=== PATIENT | female | born 1935 | race Caucasian/White ===

== ENCOUNTER 2016-06-05 10:57 | Observation (INO) ==
--- NOTE | 2016-06-05 11:29 | Emergency Department Note ---
Disposition Clinical Impression: Right sided weakness Fall Qualifiers: Encounter type: initial encounter Qualified Code(s): W19.XXXA - Unspecified fall, initial encounter Disposition: Admitted As Inpatient Condition: Fair General Adult HPI - General Chief complaint: ED Neuro Symptoms/Deficit Stated complaint: Neuro Symptoms Time Seen by Provider: 06/05/16 11:12 Source: patient Limitations: no limitations Nursing Notes Reviewed: Yes Vital Signs Reviewed: Yes - History of Present Illness HPI Narrative: 81-year-old female who reports 3 days of difficulty with ambulation due to right leg weakness, slurred speech, right facial droop. She is also been having chest discomfort for about the same amount of time. This all began at the time for the of a relative. She does have significant history of anxiety and she notes that she has the exact same chest discomfort when she has her anxiety attacks. She has had a history of coronary arterial disease but does not have any stents or CABG. She has had multiple falls but denies hitting her head. She has had a prior stroke which affected her right side that had essentially resolved and now she is having symptoms again. She does take aspirin but does not take any other blood thinners. She is not on Plavix. Pain Scale: 0 Improves with: nothing Worsens with: nothing Associated symptoms: Reports: denies other symptoms Treatments Prior to Arrival: none - Related Data Home Medications Medication Instructions Recorded Confirmed Aspirin [Adult Low Dose Aspirin EC] 81 mg PO DAILY 04/30/15 06/05/16 Atorvastatin [Lipitor] 80 mg PO HS 04/30/15 06/05/16 Cyanocobalamin (Vitamin B-12) 500 mcg SL DAILY 04/30/15 06/05/16 [Vitamin B-12] Docusate Sodium [Dok] 100 mg PO BID PRN #0 04/30/15 06/05/16 Nitroglycerin 0.4 mg PO Q5-10MIN PRN 04/30/15 06/05/16 Sertraline [Zoloft] 200 mg PO DAILY 04/30/15 06/05/16 Cholecalciferol (D-3) [Vitamin D] 2,000 unit PO DAILY 10/26/15 06/05/16 Cyclosporine [Restasis] 1 drop OP BID 10/26/15 06/05/16 Donepezil [Aricept] 10 mg PO HS 10/26/15 06/05/16 Fluticasone Propionate Nasal 100 mcg NS DAILY 10/26/15 06/05/16 [Flonase] Sucralfate [Carafate] 1 gm PO QID 03/23/16 06/05/16 TraZODone 50 mg PO HS 03/23/16 06/05/16 Albuterol Neb [Proventil Neb] 2.5 mg IH TID 06/05/16 06/05/16 Albuterol Sulfate [Albuterol 2 puff IH Q4H PRN 06/05/16 06/05/16 Inhaler] BuPROPion XL (24 HR) [Wellbutrin 150 mg PO DAILY 06/05/16 06/05/16 XL] Dicyclomine [Bentyl] 10 mg PO BID 06/05/16 06/05/16 LORazepam [Ativan] 1 mg PO TID PRN 06/05/16 06/05/16 Loratadine [Claritin] 10 mg PO DAILY 06/05/16 06/05/16 Losartan [Cozaar] 25 mg PO DAILY 06/05/16 06/05/16 Promethazine HCl 12.5 mg PO TID PRN 06/05/16 06/05/16 Tiotropium [Spiriva] 18 mcg IH DAILY 06/05/16 06/05/16 Previous Rx's Medication Instructions Recorded Isosorbide MONOnitrate (24 HR) 60 mg PO DAILY #30 tab.er.24h 05/10/15 [Imdur] OxyCODONE/APAP 5/325 [Percocet 1 tab PO Q6H PRN #50 tablet 11/01/15 5/325 MG] Pantoprazole Sodium 40 mg PO BID 30 Days 11/01/15 Allergies Allergy/AdvReac Type Severity Reaction Status Date / Time No Known Allergies Allergy Verified 06/05/16 11:03 All systems ED: reviewed and negative except as stated. Constitutional: Denies: fever Eyes: Denies: vision change ENT ED: Denies: throat pain Cardiovascular: Reports: chest pain Respiratory: Denies: cough Gastrointestinal: Denies: abdominal pain, nausea, vomiting, diarrhea Genitourinary: Denies: dysuria Musculoskeletal: Denies: back pain Psychiatric: Reports: anxiety Past Medical History - Past Medical History Medical history: Reports: CVA, GERD, GI bleed, hyperlipidemia, hypertension, myocardial infarction Surgical history: Reports: cholecystectomy, orthopedic, other Psychiatric history: Reports: anxiety CAMPGROUND CARETAKER history: Reports: no CAMPGROUND CARETAKER history - Social History Smoking Status: Never smoker Smokeless Tobacco Status: No Alcohol use: Reports: none Drug use: Reports: none Physical Exam - General Limitations: no limitations General appearance: alert, in no apparent distress - Head Head exam: atraumatic - Eye Eye exam: Present: normal appearance, PERRL, EOMI - ENT ENT exam: normal exam - Neck Neck exam: Present: normal inspection. Absent: tenderness - Chest Chest inspection: Present: normal inspection - Respiratory Respiratory exam: Present: normal lung sounds bilaterally. Absent: respiratory distress - Cardiovascular Cardiovascular exam: Present: regular rate, normal rhythm - Abdominal Exam Abdominal exam: Present: soft, Non-Tender - Extremities Exam Extremities exam: Present: normal inspection, full ROM. Absent: pedal edema - Neurological Exam Neurological exam: Present: alert, oriented X3, reflexes normal, other (She does have moderate facial droop on the right. All other cranial nerves are intact. There is no arm or leg paresthesias or objective weakness.) - Psychiatric Psychiatric exam: Present: normal affect, normal mood - Skin Skin exam: Present: warm, dry Course Course Narrative: She seems to have her return of her prior stroke symptoms. She has had multiple falls and due to this I will make sure there is not an infectious cause although this is likely neurologic in origin. She is having some chest discomfort which she insists is due to her anxiety. I will make sure this is not primary cardiac cause with an EKG and a troponin and a chest x-ray. I will also give her some anxiolysis while she is here in the emergency department. She does take that at home and is requesting her home dose. As her last known well and is 3 days ago she is not a TPA candidate. Will do a CT head and labwork. She is protecting her airway and is clinically stable. CT scan of her head does not demonstrate any acute abnormality. Lab work otherwise unremarkable. We are waiting on her urinalysis. We will obtain an MRI to rule out stroke - Reevaluation(s) Reevaluation #1: The patient is now stating that she is unable to ambulate. We will go ahead and admit her to the hospital pending her MRI. Vital Signs Temperature 97.7 F 06/05/16 11:01 Pulse Rate 65 06/05/16 11:01 Respiratory Rate 16 06/05/16 11:01 Blood Pressure 128/78 06/05/16 11:01 O2 Sat by Pulse Oximetry 94 L 06/05/16 11:01 Temperature 97.7 F 06/05/16 11:01 Pulse Rate 60 06/05/16 14:45 Respiratory Rate 18 06/05/16 15:19 Blood Pressure 107/83 06/05/16 15:19 O2 Sat by Pulse Oximetry 94 L 06/05/16 14:45 Oxygen Delivery Oxygen Delivery Room Air Medical Decision Making - Medical Records Medical records reviewed: Yes I reviewed the patient's medical records. - Lab Data Lab results reviewed: Yes I reviewed the patient's lab results. Result diagrams: 06/05/16 12:25 06/05/16 12:25 Lab Results 06/05/16 06/05/16 06/05/16 Range/Units 11:19 12:25 12:25 WBC 5.7 (4.3-11.1) K/mcL RBC 4.03 (3.82-4.97) M/mcL Hgb 11.7 (11.5-15.4) g/dL Hct 36.9 (35.3-44.9) % MCV 91.6 (83.0-100.0) fL MCH 29.0 (28.0-33.3) pg MCHC 31.7 (31.6-35.5) g/dL RDW 12.9 (11.5-14.5) % Plt Count 170 (140-400) K/mcL MPV 10.2 (9.4-12.4) fL Immature Gran % 0.4 (0-4) % Seg Neutrophils % 68.6 % Lymphocytes % 20.3 % Monocytes % 7.5 % Eosinophils % 2.8 % Basophils % 0.4 % Neutrophils # 3.9 (1.6-8.9) K/mcL Lymphocytes # 1.2 (0.6-4.6) K/mcL Monocytes # 0.4 (0.0-1.3) K/mcL Eosinophils # 0.2 (0.0-0.6) K/mcL Basophils # 0.0 (0.0-0.2) K/mcL PT 11.8 (9.4-12.1) Seconds INR 1.1 APTT 25.3 L (26.0-36.0) Seconds Sodium (136-145) mEq/L Potassium (3.5-4.5) mEq/L Chloride (98-109) mEq/L Carbon Dioxide (19-29) mEq/L BUN (7-20) mg/dL Creatinine (0.57-1.11) mg/dL Est GFR ( Amer) (> 60) Est GFR (Non-Af Amer) (> 60) BUN/Creatinine Ratio (6-26) Glucose (70-99) mg/dL POC Glucose 88 (58-89) Calculated Osmolality (280-300) Calcium (8.6-10.8) mg/dL Troponin I (0-0.03) ng/mL Urine Color (Yellow) Urine Clarity (Clear) Urine pH (5.0-8.0) pH Units Ur Specific [place] (1.010-1.025) Urine Protein (Neg-Trace) mg/dL Urine Glucose (UA) (Normal) mg/dL Urine Ketones (Negative) mg/dL Urine Blood (Negative) Urine Nitrite (Negative) Urine Bilirubin (Negative) Urine Urobilinogen (Normal) mg/dL Ur Leukocyte Esterase (Negative) Urine Microscopic RBC (0-3) per hpf Urine Microscopic WBC (0-3) per hpf Ur Squamous Epith Cells (None-Few) per lpf Urine Bacteria (None-Few) per hpf Hyaline Casts (None-Few) per lpf Ur Culture Indicated? (NO) 06/05/16 06/05/16 06/05/16 Range/Units 12:25 12:25 14:33 WBC (4.3-11.1) K/mcL RBC (3.82-4.97) M/mcL Hgb (11.5-15.4) g/dL Hct (35.3-44.9) % MCV (83.0-100.0) fL MCH (28.0-33.3) pg MCHC (31.6-35.5) g/dL RDW (11.5-14.5) % Plt Count (140-400) K/mcL MPV (9.4-12.4) fL Immature Gran % (0-4) % Seg Neutrophils % % Lymphocytes % % Monocytes % % Eosinophils % % Basophils % % Neutrophils # (1.6-8.9) K/mcL Lymphocytes # (0.6-4.6) K/mcL Monocytes # (0.0-1.3) K/mcL Eosinophils # (0.0-0.6) K/mcL Basophils # (0.0-0.2) K/mcL PT (9.4-12.1) Seconds INR APTT (26.0-36.0) Seconds Sodium 144 (136-145) mEq/L Potassium 4.4 (3.5-4.5) mEq/L Chloride 106 (98-109) mEq/L Carbon Dioxide 29 (19-29) mEq/L BUN 20 (7-20) mg/dL Creatinine 0.99 (0.57-1.11) mg/dL Est GFR ( Amer) > 60 (> 60) Est GFR (Non-Af Amer) 54 L (> 60) BUN/Creatinine Ratio 20 (6-26) Glucose 97 (70-99) mg/dL POC Glucose (58-89) Calculated Osmolality 301 H (280-300) Calcium 10.3 (8.6-10.8) mg/dL Troponin I 0.01 (0-0.03) ng/mL Urine Color Yellow (Yellow) Urine Clarity Cloudy A (Clear) Urine pH 7.5 (5.0-8.0) pH Units Ur Specific [place] 1.022 (1.010-1.025) Urine Protein Negative (Neg-Trace) mg/dL Urine Glucose (UA) Normal (Normal) mg/dL Urine Ketones Negative (Negative) mg/dL Urine Blood Negative (Negative) Urine Nitrite Negative (Negative) Urine Bilirubin Negative (Negative) Urine Urobilinogen Normal (Normal) mg/dL Ur Leukocyte Esterase Negative (Negative) Urine Microscopic RBC 0-3 (0-3) per hpf Urine Microscopic WBC 0-3 (0-3) per hpf Ur Squamous Epith Cells Many H (None-Few) per lpf Urine Bacteria None Seen (None-Few) per hpf Hyaline Casts None Seen (None-Few) per lpf Ur Culture Indicated? NO (NO) - Radiology Data Radiology results reviewed: Yes I reviewed the patient's radiology results. - EKG Data EKG #1 EKG attestation: Yes I reviewed and interpreted this EKG. EKG shows normal: sinus rhythm Rate: bradycardia Rhythm: NSR (56) When compared to previous EKG there are: no significant changes Interpretation: no acute changes Attestation Statement - Attestation Attestation: I examined this patient and my medical decision-making was reviewed with the Resident Physician. I agree with the documented findings, disposition and treatment plan as described except to the extent set forth below. Son states dysarthria and facial droop are worse than baseline, although mild on my assessment. 3 falls in last week. Unable to stand and walk in ED. Doubt stroke, but requires PT/OT eval, will likely require rehab.
[2016-06-05] MEDS ORDERED: *HR* LORazepam 0.5 MG TABLET PO ONE (11:32)
[2016-06-05 12:32] LABS: Basophils % 0.4 %; Eosinophils # 0.2 K/mcL (0.0-0.6); Eosinophils % 2.8 %; Hematocrit 36.9 % (35.3-44.9); Hemoglobin 11.7 g/dL (11.5-15.4); Immature Granulocytes % 0.4 % (0-4); Lymphocytes # 1.2 K/mcL (0.6-4.6); Lymphocytes % 20.3 %; Mean Corpuscular HGB Conc 31.7 g/dL (31.6-35.5); Mean Corpuscular Volume 91.6 fL (83.0-100.0); Mean Platelet Volume 10.2 fL (9.4-12.4); Monocytes # 0.4 K/mcL (0.0-1.3); Monocytes % 7.5 %; Neutrophils # 3.9 K/mcL (1.6-8.9); Platelet Count 170 K/mcL (140-400); Red Blood Count 4.03 M/mcL (3.82-4.97); Red Cell Distribution Width 12.9 % (11.5-14.5); Segmented Neutrophils % 68.6 %
[2016-06-05 12:38] LABS: INR 1.1; Prothrombin Time 11.8 Seconds (9.4-12.1)
[2016-06-05 12:41] LABS: Activated Partial Thrombo Time 25.3 Seconds (26.0-36.0)
[2016-06-05 12:42] LABS: BUN/Creatinine Ratio 20 (6-26); Blood Urea Nitrogen 20 mg/dL (7-20); Calcium 10.3 mg/dL (8.6-10.8); Carbon Dioxide 29 mEq/L (19-29); Chloride 106 mEq/L (98-109); Glucose 97 mg/dL (70-99); Osmolality,Calculated 301 (280-300); Potassium 4.4 mEq/L (3.5-4.5); Sodium 144 mEq/L (136-145); eGFR For African Americans > 60 (> 60); eGFR For Non-African Americans 54 (> 60)
[2016-06-05 14:46] LABS: Bilirubin,Urine Negative (Negative); Blood,Urine Negative (Negative); Clarity,Urine Cloudy (Clear); Color,Urine Yellow (Yellow); Glucose,Urine (UA) Normal (Normal); Ketones,Urine Negative (Negative); Leukocyte Esterase,Urine Negative (Negative); Nitrite,Urine Negative (Negative); PH,Urine 7.5 pH Units (5.0-8.0); Protein,Urine Negative (Neg-Trace); Specific Gravity,Urine 1.022 (1.010-1.025); Urobilinogen,Urine Normal (Normal)
[2016-06-05 14:51] LABS: Bacteria,Urine None Seen per hpf (None-Few); Hyaline Casts,Urine None Seen per lpf (None-Few); RBC,Urine 0-3 per hpf (0-3); Squamous Epithelial Cell,Urine Many per lpf (None-Few); WBC,Urine 0-3 per hpf (0-3)
[2016-06-05] MEDS ORDERED: Naloxone 0.4 MG/ML INJ IVP PRN (17:38)
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
[2016-06-05] MEDS ORDERED: traZODone 50 MG TABLET PO SCH (21:00)
[2016-06-05] MEDS: Albuterol 2.5 MG/3 ML NEBULIZER IH SCH (21:41)
[2016-06-05] MEDS: Sucralfate 1 GM TABLET PO SCH (22:06)
[2016-06-05] MEDS: *HR* LORazepam 0.5 MG TABLET PO PRN (22:07)
[2016-06-05] MEDS: RESTASIS OPTH OP SCH (22:08)
[2016-06-05] MEDS ORDERED: *HR* OxyCODONE/APAP 5/325 TABLET PO PRN (22:23)
[2016-06-06 05:55] LABS: Basophils % 0.4 %; Eosinophils # 0.2 K/mcL (0.0-0.6); Eosinophils % 4.3 %; Hemoglobin 11.4 g/dL (11.5-15.4); Immature Granulocytes % 0.4 % (0-4); Lymphocytes # 1.4 K/mcL (0.6-4.6); Lymphocytes % 24.9 %; Mean Corpuscular HGB Conc 32.6 g/dL (31.6-35.5); Mean Corpuscular Hemoglobin 29.5 pg (28.0-33.3); Mean Corpuscular Volume 90.7 fL (83.0-100.0); Mean Platelet Volume 10.5 fL (9.4-12.4); Monocytes # 0.5 K/mcL (0.0-1.3); Monocytes % 8.9 %; Neutrophils # 3.4 K/mcL (1.6-8.9); Platelet Count 158 K/mcL (140-400); Red Blood Count 3.86 M/mcL (3.82-4.97); Red Cell Distribution Width 12.8 % (11.5-14.5); Segmented Neutrophils % 61.1 %
[2016-06-06 06:13] LABS: BUN/Creatinine Ratio 23 (6-26); Blood Urea Nitrogen 21 mg/dL (7-20); Calcium 9.6 mg/dL (8.6-10.8); Carbon Dioxide 27 mEq/L (19-29); Chloride 106 mEq/L (98-109); Glucose 81 mg/dL (70-99); Osmolality,Calculated 294 (280-300); Sodium 141 mEq/L (136-145); eGFR For African Americans > 60 (> 60); eGFR For Non-African Americans 58 (> 60)
--- NOTE | 2016-06-06 06:56 | Electrocardiograph Report ---
[facility] Test Date: 2016-06-05 Pat Name: Kimberly Thomas Department: 105 Room: 2NE27 Gender: F Executive Director: : 1935 Requested By: Glen Peralta Order Number: [id number] Reading MD: Phill Gomez DO Measurements Intervals [place] Rate: 56 P: 61 TN: 175 QRS: -25 QRSD: 78 T: 63 QT: 427 QTc: 418 Interpretive Statements SINUS BRADYCARDIA BORDERLINE LEFT AXIS DEVIATION [QRS AXIS < -20] Electronically Signed On 06-06-2016 6:54:35 EST by Phill Gomez DO
[2016-06-06] MEDS: Tiotropium 18 MCG inhalation IH SCH (08:21)
[2016-06-06] MEDS: Albuterol 2.5 MG/3 ML NEBULIZER IH SCH ×3 (08:21→21:17)
--- NOTE | 2016-06-06 08:42 | Internal Med Progress Note ---
<Saurav Lainez - Last Filed: 06/06/16 13:48> Date of Encounter: 06/06/16 - Constitutional Vitals: Temp Pulse Resp BP Pulse Ox 98.5 F 69 70 103/63 96 06/06/16 12:51 06/06/16 12:51 06/06/16 12:51 06/06/16 12:51 06/06/16 12:51 Internal Medicine: Result - Labs CBC & Chem 7: 06/06/16 05:33 06/06/16 05:33 Labs: Short CBC 06/06/16 Range/Units 05:33 WBC 5.6 (4.3-11.1) K/mcL Hgb 11.4 L (11.5-15.4) g/dL Hct 35.0 L (35.3-44.9) % Plt Count 158 (140-400) K/mcL Neutrophils # 3.4 (1.6-8.9) K/mcL BMP 06/06/16 05:33 Sodium 141 Potassium 4.0 Chloride 106 Carbon Dioxide 27 BUN 21 H Creatinine 0.93 Glucose 81 Calcium 9.6 - ABG Interpretation ABG results: PT/INR, D-dimer PT 11.8 Seconds (9.4-12.1) 06/05/16 12:25 Consult Discharge Plan - Plan Referrals: Tori Cordoba, CRYPTOLOGIC LINGUIST [Primary Care Provider] - - Attending Attestation I examined this patient and my medical decision-making was reviewed with the NURSE MIDWIFE/CLINICAL INSTRUCTOR/PA/Advanced Practice Nurse/Resident Physician. I agree with the documented findings, disposition and treatment plan as described except to the extent set forth below. <Vasile Sanders - Last Filed: 06/06/16 17:19> Date of Encounter: 06/06/16 Time of Encounter: 09:00 - Assessment and plan (1) Right sided weakness Current Visit: Yes Status: Acute Assessment and plan: -CT and MRI negative for acute abnormality. Does have significant atrophy and old lacunar infarcts. CXR shows COPD, EKG shows HR 56. Previous vitals 50's/70s. -MRA head in 2016 negative -Patient appears to be close to baseline for strength. -Patient extremely stressed lately. Became tearful during the exam. -Per family in the room, patient gets improper medication dosing by her boyfriend. States that "she got 4 losartan pills when she should have gotten one " -Suspect medication vs conversion disorder for recent R sided weakness. Plan -ECHO ordered to evaluate valvular function. (2) HTN (hypertension) Current Visit: No Status: Chronic Assessment and plan: -patient asymptomatic and below 160 systolic. -Patient has COPD.Consider adding norvasc. if persistent HTN Qualifiers: Hypertension type: essential hypertension Qualified Code(s): I10 - Essential (primary) hypertension (3) ALFONSO (generalized anxiety disorder) Current Visit: Yes Status: Acute (4) DVT prophylaxis Current Visit: Yes Status: Acute Assessment and plan: -on lovenox - Time Spent With Patient 25 - 35 minutes - Subjective Interval history: Patient is resting comfortably in bed. She has family members at bedside. Complains of R sided weakness. Feels it is unchanged since yesterday. Denies headache, blurry vision, CP. Admits to being stressed lately. R sided weakness happened suddenly while walking. Made her fall to the ground. She did not loose consciousness. Denies any recent fever, sick contacts or trauma, palpitations, CP, SOB. PHM of anxiety and panic attacks. - Constitutional Vitals: Temp Pulse Resp BP Pulse Ox 98.8 F 63 16 145/74 97 06/06/16 08:06 06/06/16 08:06 06/06/16 08:23 06/06/16 08:06 06/06/16 08:23 General appearance: Present: cooperative, A&O X 3, answers questions appropriately - Head Head exam: Present: atraumatic, normocephalic - Eye Eye exam: Present: PERRL, conjuntiva pink, sclera anicteric Pupils: Present: PERRL - Respiratory Respiratory exam: Present: CTAB. Absent: accessory muscle use, rales, rhonchi, wheezes - Cardiovascular Cardiovascular exam: Present: RRR, +S1, +S2. Absent: diastolic murmur, gallop, rubs, systolic murmur - GI/Abdominal GI/Abdominal exam: Present: normal bowel sounds, soft, no peritoneal signs. Absent: distended, tenderness - Neurological Exam Neurological exam: Present: oriented X3, facial droop (chronic from previous stroke. ). Absent: pronater drift - Expanded Neurological Exam Neurological exam expanded: Present: memory loss-recent event, protecting the airway. Absent: total aphasia Patient oriented to: Present: person, place, time Speech: Present: fluid speech Cranial Nerves: EOM's intact PM: Normal, tongue deviation PM: Normal Cerebellar function: finger to nose: Normal Upper motor neuron: Babinski sign: Normal Sensory exam: LE 2 point discrimination: Normal Neuro motor strength exam: LUE: 5, RUE: 5, LLE: 5, RLE: 4 - Psychiatric Psychiatric exam: Present: normal affect, normal mood Internal Medicine: Result - Labs CBC & Chem 7: 06/06/16 05:33 06/06/16 05:33 Labs: Short CBC 06/06/16 Range/Units 05:33 WBC 5.6 (4.3-11.1) K/mcL Hgb 11.4 L (11.5-15.4) g/dL Hct 35.0 L (35.3-44.9) % Plt Count 158 (140-400) K/mcL Neutrophils # 3.4 (1.6-8.9) K/mcL BMP 06/06/16 05:33 Sodium 141 Potassium 4.0 Chloride 106 Carbon Dioxide 27 BUN 21 H Creatinine 0.93 Glucose 81 Calcium 9.6 - ABG Interpretation ABG results: PT/INR, D-dimer PT 11.8 Seconds (9.4-12.1) 06/05/16 12:25
[2016-06-06] MEDS: Loratadine 10 MG TABLET PO SCH (09:27)
[2016-06-06] MEDS: BuPROPion XL (24 HR) 150 MG TABLET PO SCH (09:27)
[2016-06-06] MEDS: Cyanocobalamin (B-12) 1,000 MCG TABLET PO SCH (09:27)
[2016-06-06] MEDS: Cholecalciferol (D-3) 1,000 UNIT TABLET PO SCH (09:28)
[2016-06-06] MEDS: Sucralfate 1 GM TABLET PO SCH ×4 (09:28→21:07)
[2016-06-06] MEDS: Isosorbide MONOnitrate (24 HR) 60 MG TAB.ER.24H PO SCH (09:30)
[2016-06-06] MEDS: RESTASIS OPTH OP SCH ×2 (09:30→21:07)
[2016-06-06] MEDS: Aspirin Enteric Coated 81 MG Tablet PO SCH (09:30)
[2016-06-06] MEDS: *HR* LORazepam 0.5 MG TABLET PO PRN ×3 (09:36→21:07)
[2016-06-06] MEDS: *HR* Enoxaparin 30 MG/0.3 ML SYRINGE SQ SCH (16:11)
[2016-06-06] MEDS: Fluticasone Propionate Nasal 50 MCG/SPRAY BOTTLE NS SCH (17:01)
[2016-06-06] MEDS ORDERED: traZODone 50 MG TABLET PO PRN (20:07)
[2016-06-07] MEDS: *HR* Enoxaparin 30 MG/0.3 ML SYRINGE SQ SCH (06:14)
[2016-06-07 06:20] LABS: BUN/Creatinine Ratio 29 (6-26); Blood Urea Nitrogen 24 mg/dL (7-20); Carbon Dioxide 26 mEq/L (19-29); Chloride 107 mEq/L (98-109); Glucose 98 mg/dL (70-99); Magnesium 1.9 mg/dL (1.6-2.6); Osmolality,Calculated 300 (280-300); Phosphorous 4.2 mg/dL (2.3-4.7); Potassium 4.1 mEq/L (3.5-4.5); Sodium 143 mEq/L (136-145); eGFR For African Americans > 60 (> 60); eGFR For Non-African Americans > 60 (> 60)
[2016-06-07] MEDS ORDERED: *HR* Enoxaparin 30 MG/0.3 ML SYRINGE SQ SCH (07:00)
[2016-06-07] MEDS: Tiotropium 18 MCG inhalation IH SCH (07:39)
[2016-06-07] MEDS: Albuterol 2.5 MG/3 ML NEBULIZER IH SCH (07:39)
--- NOTE | 2016-06-07 09:34 | Discharge Summary ---
<TommyVasile Glen - Last Filed: 06/07/16 12:50> Date of Encounter: 06/07/16 Time of Encounter: 08:00 - Discharge Diagnosis (1) Right sided weakness Status: Acute Comments: -See hospital discharge. (2) HTN (hypertension) Status: Resolved Qualifiers: Hypertension type: essential hypertension Qualified Code(s): I10 - Essential (primary) hypertension (3) ALFONSO (generalized anxiety disorder) Status: Acute (4) DVT prophylaxis Status: Acute - Discharge Medications Home Medications: Aspirin [Adult Low Dose Aspirin EC] 81 mg PO DAILY 04/30/15 [History] Atorvastatin [Lipitor] 80 mg PO HS 04/30/15 [History] Cyanocobalamin (Vitamin B-12) [Vitamin B-12] 500 mcg SL DAILY 04/30/15 [History] Docusate Sodium [Dok] 100 mg PO BID PRN #0 04/30/15 [History] Nitroglycerin 0.4 mg PO Q5-10MIN PRN 04/30/15 [History] Sertraline [Zoloft] 200 mg PO DAILY 04/30/15 [History] Isosorbide MONOnitrate (24 HR) [Imdur] 60 mg PO DAILY #30 tab.er.24h 05/10/15 [ Rx] Cholecalciferol (D-3) [Vitamin D] 2,000 unit PO DAILY 10/26/15 [History] Cyclosporine [Restasis] 1 drop OP BID 10/26/15 [History] Donepezil [Aricept] 10 mg PO HS 10/26/15 [History] Fluticasone Propionate Nasal [Flonase] 100 mcg NS DAILY 10/26/15 [History] OxyCODONE/APAP 5/325 [Percocet 5/325 MG] 1 tab PO Q6H PRN #50 tablet 11/01/15 [ Rx] Pantoprazole Sodium 40 mg PO BID 30 Days 11/01/15 [Rx] Sucralfate [Carafate] 1 gm PO QID 03/23/16 [History] TraZODone 50 mg PO HS 03/23/16 [History] Albuterol Neb [Proventil Neb] 2.5 mg IH TID 06/05/16 [History] Albuterol Sulfate [Albuterol Inhaler] 2 puff IH Q4H PRN 06/05/16 [History] BuPROPion XL (24 HR) [Wellbutrin XL] 150 mg PO DAILY 06/05/16 [History] Dicyclomine [Bentyl] 10 mg PO BID 06/05/16 [History] LORazepam [Ativan] 1 mg PO TID PRN 06/05/16 [History] Loratadine [Claritin] 10 mg PO DAILY 06/05/16 [History] Losartan [Cozaar] 25 mg PO DAILY 06/05/16 [History] Promethazine HCl 12.5 mg PO TID PRN 06/05/16 [History] Tiotropium [Spiriva] 18 mcg IH DAILY 06/05/16 [History] Allergies/Adverse Reactions: Allergies No Known Allergies Allergy (Verified 06/05/16 11:03) Procedures/tests Complete & Pending: Procedures Performed prior 72 hours Category Date Time Status EV echocardiogram Routine Y 06/06/16 16:59 Completed Date of admission: 06/05/16 15:06 Primary care physician: Tori Cordoba CNP Consults: 06/05/16 17:46 Consult to Occupational Therapy [CONS] Routine Comment: Evaluate, develop and implement POC Consult to Physical Therapy [CONS] Routine Comment: Evaluate, develop and implement POC 06/05/16 17:48 Consult to Reinforced Ironworker [CONS] Routine Reason for SW Consult: discharge planning - concerns about medication adminstration at home-living situation with boyfriend, fall risk 06/05/16 18:08 Consult to Nutrition [CONS] Routine Comment: Consulting Provider: NUTRITION Reason for Dietary Consult: MST Score Discharging clinician: Vasile Sanders - Patient Status Disposition: Home Health Service Condition: Good Functional capacity at discharge: uses cane/walker Overall status at discharge: patient is progressing back to baseline - Discharge Instructions Instructions: Transient Ischemic Attack (DC), Left Hemispheric Stroke (DC), Brain Stem Infarction (DC), Weakness (GEN) Follow Up With: Tori Cordoba CNP [Primary Care Provider] - Gamaliel Chase MD [Partnered Physician] - (Sudden R sided weakness lasting several days. CT/MRI/EKG/CXR/ECHO no acute changes. Patient under a lot of stress. Possible conversion disorder. ) Additional Instructions: Please followup with psychiatry referral. If you have new or worsening symptoms , please go to your nearest ED to be evaluated. - Diet and Activity Activity: as per physical therapy Diet: advance to your usual diet Hospital course: Ms. Thomas is a 81 year old female, PHM anxiety and stroke 3 years ago, who was admitted for R sided weakness that started 3 days pior to admission. Patient stated it was sudden and has residual effects. She has been under a lot of stress lately. Lab work was within normal limits. CT head/MRI head/CXR, EKG, ECHO shows no acute abnormality. MRI does show old lacunar infarcts and moderate brain atrophy. Ventricles appear to be WNL. Discussed findings with patient at bedside. Becasue of negative workup, I feel this is most likely a conversion disorder-considering the sudden onset, stressful situation(s), regaining of function and negative workup for TIA/stroke/cardiac pathology. After speaking with the family, it was noted that she may be getting her mediations inappropriately distributed. Home health services is on board. She does not have a psychiatrist and would like to have an appointment. She does feel comfortable going home and wishes to leave the hospital at this time. - Time Spent with Patient Total time spent providing and/or coordinating discharge services: Greater than 30 minutes - Constitutional Vitals: Temp Pulse Resp BP Pulse Ox 97.9 F 74 16 123/57 96 06/07/16 08:02 06/07/16 08:02 06/07/16 08:02 06/07/16 08:02 06/07/16 08:02 General appearance: Present: cooperative, A&O X 3, answers questions appropriately - Head Head exam: Present: atraumatic, normocephalic - Eye Eye exam: Present: PERRL, conjuntiva pink, sclera anicteric Pupils: Present: PERRL - Neck Neck exam general surgery: Present: supple, trachea midline. Absent: lymphadenopathy - Respiratory Respiratory exam: Present: CTAB. Absent: accessory muscle use, rales, rhonchi, wheezes - Cardiovascular Cardiovascular exam: Present: RRR, +S1, +S2. Absent: diastolic murmur, gallop, rubs, systolic murmur - GI/Abdominal GI/Abdominal exam: Present: normal bowel sounds, soft, no peritoneal signs. Absent: distended, tenderness - Extremities Exam Extremities exam: Present: warm, radial pulses palpable and symetrical. Absent : calf tenderness, cyanotic, pedal edema - Neurological Exam Neurological exam: Present: CN II-XII intact, oriented X3, no focal deficits. Absent: pronater drift, facial droop, speech deficit - Expanded Neurological Exam Speech: Present: fluid speech. Absent: garbled, slurred, stutter Cranial Nerves: EOM's intact PM: Normal Cerebellar function: finger to nose: Normal Upper motor neuron: sensory extinction: Normal - Skin Skin exam: Present: dry, intact - Other Additional findings: Leg strength is equal bilaterally. <Saurav Lainez P - Last Filed: 06/07/16 14:49> Date of Encounter: 06/07/16 Procedures/tests Complete & Pending: Procedures Performed prior 72 hours Category Date Time Status EV echocardiogram Routine Y 06/06/16 16:59 Completed Date of admission: 06/05/16 15:06 Primary care physician: Tori Cordoba CNP Consults: 06/05/16 17:46 Consult to Occupational Therapy [CONS] Routine Comment: Evaluate, develop and implement POC Consult to Physical Therapy [CONS] Routine Comment: Evaluate, develop and implement POC 06/05/16 17:48 Consult to Reinforced Ironworker [CONS] Routine Reason for SW Consult: discharge planning - concerns about medication adminstration at home-living situation with boyfriend, fall risk 06/05/16 18:08 Consult to Nutrition [CONS] Routine Comment: Consulting Provider: NUTRITION Reason for Dietary Consult: MST Score Hospital course: Ms. Thomas is a 81 year old female - Time Spent with Patient Total time spent providing and/or coordinating discharge services: - Constitutional Vitals: Temp Pulse Resp BP Pulse Ox 98.7 F 65 16 118/67 97 06/07/16 12:30 06/07/16 12:30 06/07/16 12:30 06/07/16 12:30 06/07/16 12:30 - Attending Attestation I examined this patient and my medical decision-making was reviewed with the R PROGRAMMER/PA/Advanced Practice Nurse/Resident Physician. I agree with the documented findings, disposition and treatment plan as described except to the extent set forth below. spoke to daughter and she will be in charge of patient's medications.
--- NOTE | 2016-06-07 09:41 | ECHO - Doppler Report ---
Echocardiogram Name: Kimberly Thomas Date of Study: 06/06/2016 Date: 1935 Ht: 62.0 in Medical Record#: [id number] Age: 81 Wt: 103.0 lb Gender: Female BSA: 1.44 Order #: [id number] Location: [facility] Room #: [id number] Reading Physician: Feroz Wu DO, SAVITA, [place] VIVAR Binding Folder Machine: Génesis Wheeler RDCS Ordering Physician: Saurav Lainez MD Primary Physician: Tori Cordoba CNP Indications: Right Side Weakness, Evaluate valves Impressions: LVEF 65%. Normal LV chamber size, wall thickness and function. Mild left ventricular diastolic dysfunction. Normal right ventricular structure and function. Mild aortic regurgitation. No evidence of pulmonary hypertension. Left Ventricular Wall Motion: Rest Echo Findings All wall segments showed normal motion. Findings: Study Quality * Technically adequate exam. ECG Findings * Normal sinus rhythm. Left Ventricle * LVEF 65%. * Normal LV chamber size, wall thickness and function. * Mild left ventricular diastolic dysfunction. Right Ventricle * Normal right ventricular structure and function. Left Atrium * Normal left atrial size. Right Atrium * Normal right atrial size. Interatrial Septum * Interatrial septum not well evaluated. Aortic Valve * Aortic valve not well visualized. * Mildly calcified aortic valve leaflets. * Mild aortic regurgitation. * No aortic stenosis. Mitral Valve * Mild mitral annular calcification * No mitral regurgitation. * No mitral stenosis. Tricuspid Valve * Normal tricuspid valve structure and function. * Trace tricuspid regurgitation. * No evidence of pulmonary hypertension. Pulmonic Valve * Pulmonic valve not well visualized. * No pulmonic regurgitation. Aorta * Normally sized aortic root. Pericardium * The pericardium appears normal. IVC * Normal IVC dimensions and inspiratory collapse. Pulmonary Artery * Normal visualized portions of the main pulmonary artery. History Hypertension Hypercholesteremia Family History of CAD Myocardial Infarction 03/24/2016 a Previous Echo was performed. Measurements: BP: 149/ 66 2D Normal Values RVIDd: 1.96 cm <2.7 cm IVSd: .67 cm 0.6 - 1.0 cm LVIDd: 4.63 cm 3.7 - 5.6 cm LVPWd: .77 cm 0.6 - 1.1 cm LVIDs: 2.46 cm 1.5 - 3.6 cm AO: 2.10 cm < 4.0 cm LA: 2.90 cm 2.0 - 4.0cm %FS: 46.90 cm >25 % LVOT Diam: 1.90 cm LA volume: 24 Mitral Valve Peak E:.97 m/sec Peak A:1.30 m/sec E/A Ratio:0.7 Peak E' Lat Piotr:8.95 cm/s Peak E' Med Piotr:8.21 cm/s E/E' Lat Ratio:10.8 E/E' Med Ratio:11.8 Aortic Valve AI pressure Half-time: 866.00 msec Tricuspid Valve TV Regurg Peak Grad: 12.00mmHg TV Regurg Peak Piotr: 1.75m/sec Updated by Feroz Wu DO, FACDarlene, [place] VIVAR on 06/07/2016 9:36:08 AM electronically signed on 06/07/2016 9:36:51 AM with status of Final Wall Motion Hightower: 1=Normal, 2=Hypokinesis, 3=Akinesis, 4=Dyskinesis, 5=Aneurysmal, 6=Hyperkinetic, X=Not Visualized (Blank)=Missing
[2016-06-07] MEDS: Cyanocobalamin (B-12) 1,000 MCG TABLET PO SCH (10:42)
[2016-06-07] MEDS: Aspirin Enteric Coated 81 MG Tablet PO SCH (10:42)
[2016-06-07] MEDS: Loratadine 10 MG TABLET PO SCH (10:42)
[2016-06-07] MEDS: BuPROPion XL (24 HR) 150 MG TABLET PO SCH (10:42)
[2016-06-07] MEDS: Isosorbide MONOnitrate (24 HR) 60 MG TAB.ER.24H PO SCH (10:42)
[2016-06-07] MEDS: Sucralfate 1 GM TABLET PO SCH (10:42)
[2016-06-07] MEDS: Cholecalciferol (D-3) 1,000 UNIT TABLET PO SCH (10:43)
[2016-06-07] MEDS: Fluticasone Propionate Nasal 50 MCG/SPRAY BOTTLE NS SCH (10:44)
[2016-06-07] MEDS: RESTASIS OPTH OP SCH (10:44)
[2016-06-07 12:32] VITALS: BP 118/67
--- NOTE | 2016-06-07 12:36 | Physician Discharge Referral ---
<Vasile Sanders - Last Filed: 06/07/16 12:33> Home Health/Hosp Referral Info Transfer to: Home Health Attending Provider: Dr. Lainez Provider in Charge Post Discharge: PCP - Diagnosis (1) Right sided weakness Status: Acute (2) HTN (hypertension) Status: Chronic (3) ALFONSO (generalized anxiety disorder) Status: Acute (4) DVT prophylaxis Status: Acute - Respiratory Orders None Smoking Cessation: Smoking cessation has been advised. For more information, call the [place] Tobacco Quit Line at 9-172-DVQW-NOW. - Activity Activity Orders: Ambulate, Walker - Services Needed Following services are medically necessary services: Home Health Aide, Physical Therapy, Occupational Therapy Home Care Orders: Occupational therapy: OT eval done in hospital. C/C: R sided Weakness Assessment OT evaluation completed this date. Due to the impairments listed above pt requires continued skilled OT services during acute hospital care. Upon discharge from hospital pt is safe to return home but requires 24 hour supervision initially for safety and assistance and no additional OT services are needed at this time. Rehab Potential Good Planned OT Interventions Therapeutic Exercise,Therapeutic Activity,Self Care/Home Management OT Treatment Frequency 3x/wk OT Duration of Treatment until discharged from acute hospital care Estimated OT Needs at Home with 24hr Physical Therapy: Pt demonstrates minimal balance and gait impairments. No skilled PT services are required in acute care setting. However, pt would benefit from skilled PT services in outpatient setting upon d/c in order to instruct higher level balance and gait training. PT encouraged pt to continue ambulation with caregivers. PT Treatment Diagnosis Other abnormalities of gait and mobility Estimated PT Needs at Outpatient Therapy Home Health aid -Patient has been receiving her meds wrong. Got 4 lisinopril pills when she should not have. Medications handled by her boyfriend. Has been running short on controlled substances. Please dose the appropriate medication to the patient. Thank you. - Transfer Medications Home Medications: Aspirin [Adult Low Dose Aspirin EC] 81 mg PO DAILY 04/30/15 [History] Atorvastatin [Lipitor] 80 mg PO HS 04/30/15 [History] Cyanocobalamin (Vitamin B-12) [Vitamin B-12] 500 mcg SL DAILY 04/30/15 [History] Docusate Sodium [Dok] 100 mg PO BID PRN #0 04/30/15 [History] Nitroglycerin 0.4 mg PO Q5-10MIN PRN 04/30/15 [History] Sertraline [Zoloft] 200 mg PO DAILY 04/30/15 [History] Isosorbide MONOnitrate (24 HR) [Imdur] 60 mg PO DAILY #30 tab.er.24h 05/10/15 [ Rx] Cholecalciferol (D-3) [Vitamin D] 2,000 unit PO DAILY 10/26/15 [History] Cyclosporine [Restasis] 1 drop OP BID 10/26/15 [History] Donepezil [Aricept] 10 mg PO HS 10/26/15 [History] Fluticasone Propionate Nasal [Flonase] 100 mcg NS DAILY 10/26/15 [History] OxyCODONE/APAP 5/325 [Percocet 5/325 MG] 1 tab PO Q6H PRN #50 tablet 11/01/15 [ Rx] Pantoprazole Sodium 40 mg PO BID 30 Days 11/01/15 [Rx] Sucralfate [Carafate] 1 gm PO QID 03/23/16 [History] TraZODone 50 mg PO HS 03/23/16 [History] Albuterol Neb [Proventil Neb] 2.5 mg IH TID 06/05/16 [History] Albuterol Sulfate [Albuterol Inhaler] 2 puff IH Q4H PRN 06/05/16 [History] BuPROPion XL (24 HR) [Wellbutrin XL] 150 mg PO DAILY 06/05/16 [History] Dicyclomine [Bentyl] 10 mg PO BID 06/05/16 [History] LORazepam [Ativan] 1 mg PO TID PRN 06/05/16 [History] Loratadine [Claritin] 10 mg PO DAILY 06/05/16 [History] Losartan [Cozaar] 25 mg PO DAILY 06/05/16 [History] Promethazine HCl 12.5 mg PO TID PRN 06/05/16 [History] Tiotropium [Spiriva] 18 mcg IH DAILY 06/05/16 [History] Allergies/Adverse Reactions: Allergies No Known Allergies Allergy (Verified 06/05/16 11:03) Certification: Further, I certify that my clinical findings support that this patient is homebound (i.e. absences from home require considerable and taxing effort and are for medical reasons or latter-day services or infrequently or short duration when for other reasons) because: Homebound Reason: Leaving home requires considerable and taxing effort due to condition Attestation: My signature below is to certify that this patient is under my care and that I, or nurse practitioner, or a physician's orthodontic assistant working with me, has a face-to -face encounter with this patient. <Saurav Lainez P - Last Filed: 06/07/16 14:49> - Respiratory Orders Smoking Cessation: Smoking cessation has been advised. For more information, call the [place] Tobacco Quit Line at 2-586-DYJFNOW. Certification: Further, I certify that my clinical findings support that this patient is homebound (i.e. absences from home require considerable and taxing effort and are for medical reasons or latter-day services or infrequently or short duration when for other reasons) because: Attestation: My signature below is to certify that this patient is under my care and that I, or nurse practitioner, or a physician's orthodontic assistant working with me, has a face-to -face encounter with this patient.
[2016-06-08] MEDS ORDERED: *HR* Enoxaparin 40 MG/0.4 ML SYRINGE SQ SCH (07:00)
== END 2016-06-07 14:14 | disposition home health service (06) ==
LOC: EMEROO 10:57 → 2NENU 10:57
PROVIDERS: ADMIT Family Medicine; ATTEND Internal Medicine

== ENCOUNTER 2017-08-17 09:11 | Inpatient (IN) ==
--- NOTE | 2017-08-17 09:23 | Emergency Department Note ---
Disposition Clinical Impression: Generalized weakness, Accelerated hypertension, Chronic migraine, Lactic acidosis Abdominal pain Qualifiers: Abdominal location: unspecified location Qualified Code(s): R10.9 - Unspecified abdominal pain Disposition: Admitted As Inpatient Condition: Good Time of Disposition: 12:12 General Adult HPI - General Chief complaint: ED Headache Stated complaint: headache Time Seen by Provider: 08/17/17 09:15 Source: patient, EMS Mode of arrival: EMS Limitations: no limitations Nursing Notes Reviewed: Yes Vital Signs Reviewed: Yes - History of Present Illness HPI Narrative: 82-year-old female history of hypertension and prior CVA resents emergency department via EMS for generalized weakness, headache, and diarrhea. Patient states over the past 3 days sees had diarrhea with associated abdominal pain. She reports nausea no vomiting. Last night she developed an headache and was found to have elevated blood pressure. She has not been able take her home antihypertensive medication lisinopril she normally does in the morning. Her blood pressures elevated systolic 190. She reports of some chest pain but points to her belly. She denies any shortness of breath. On examination she is in some moderate distress it appears uncomfortable. She complains of some neck pain along with a headache. She has a slight right sided facial droop whispering to the forehead. States she has had a prior stroke but is unsure if her facial asymmetry is new or old. No focal neural deficits on extremities. Abdomen is diffusely tender. At this time EKG chest x-ray CT of the head with abdomen and pelvis. Basic labs including troponin and lactate. Will await the arrival of her to obtain further history. Pain Scale: 8 - Related Data Home Medications Medication Instructions Recorded Confirmed Aspirin [Adult Low Dose Aspirin EC] 81 mg PO DAILY 04/30/15 12/09/16 Atorvastatin [Lipitor] 80 mg PO HS 04/30/15 12/09/16 Cyanocobalamin (Vitamin B-12) 500 mcg SL DAILY 04/30/15 12/09/16 [Vitamin B-12] Docusate Sodium [Dok] 100 mg PO BID PRN #0 04/30/15 12/09/16 Nitroglycerin 0.4 mg PO Q5-10MIN PRN 04/30/15 12/09/16 Sertraline [Zoloft] 100 mg PO BID 04/30/15 06/05/16 Cholecalciferol (D-3) [Vitamin D] 2,000 unit PO DAILY 10/26/15 12/09/16 Cyclosporine [Restasis] 1 drop OP BID 10/26/15 12/09/16 Donepezil [Aricept] 10 mg PO HS 10/26/15 12/09/16 Fluticasone Propionate Nasal 100 mcg NS DAILY 10/26/15 12/09/16 [Flonase] Sucralfate [Carafate] 1 gm PO QID 03/23/16 12/09/16 TraZODone 100 mg PO HS 03/23/16 12/09/16 Albuterol Neb [Proventil Neb] 2.5 mg IH TID 06/05/16 12/09/16 Albuterol Sulfate [Albuterol 2 puff IH Q4H PRN 06/05/16 12/09/16 Inhaler] BuPROPion XL (24 HR) [Wellbutrin 150 mg PO DAILY 06/05/16 12/09/16 Xl] Loratadine [Claritin] 10 mg PO DAILY 06/05/16 12/09/16 Losartan [Cozaar] 25 mg PO DAILY 06/05/16 12/09/16 Previous Rx's Medication Instructions Recorded Isosorbide MONOnitrate (24 HR) 60 mg PO DAILY #30 tab.er.24h 05/10/15 [Imdur] Pantoprazole Sodium 40 mg PO BID 30 Days tablet. 11/01/15 Promethazine [Phenergan] 25 mg PO Q6HR PRN #10 tablet 12/02/16 Sulfamethoxazole/Trimeth DS 1 each PO BID #14 tablet 12/02/16 [Bactrim Ds] Patient Taking Own Medication 1 each VG HS each 12/12/16 Melatonin 3 mg PO HS PRN tab 12/14/16 OxyCODONE/APAP 5/325 [Percocet 1 each PO Q6HR PRN #28 tablet 12/14/16 5/325 MG] Albuterol Sulfate [Albuterol 0 puff IH Q4HR #1 hfa.aer.ad 04/04/17 Inhaler] Ipratropium/Albuterol Neb [Duoneb] 3 ml IH Q4HR #30 vial.neb 04/04/17 Allergies Allergy/AdvReac Type Severity Reaction Status Date / Time No Known Allergies Allergy Verified 06/05/16 11:03 All systems ED: reviewed and negative except as stated. Review of Systems: As Per HPI Constitutional: Reports: weakness. Denies: fever, chills ENT ED: Denies: congestion Cardiovascular: Denies: chest pain Respiratory: Denies: cough, dyspnea Gastrointestinal: Reports: abdominal pain, nausea, diarrhea. Denies: vomiting Genitourinary: Denies: urgency, dysuria Musculoskeletal: Reports: neck pain. Denies: back pain Integumentary: Denies: rash, abrasion Neurological: Reports: headache, weakness Psychiatric: Denies: anxiety, depression Endocrine: Reports: fatigue Past Medical History - Past Medical History Attestation: Yes The following information was validated with the patient. 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 Absent: meningismus - Expanded Neck Exam Neck exam focused ED: Present: paraspinal tenderness (BILATERAL) - Chest Chest inspection: Present: normal inspection, symmetric chest wall rise - Respiratory Respiratory exam: Present: normal lung sounds bilaterally - Cardiovascular Cardiovascular exam: Present: regular rate, normal rhythm, normal heart sounds. Absent: systolic murmur, diastolic murmur - Abdominal Exam Abdominal exam: Present: soft, tenderness, normal bowel sounds. Absent: Non- Tender, distention, guarding, rebound, rigidity Abdominal tenderness: Present: diffuse - Extremities Exam Extremities exam: Present: normal inspection, full ROM, normal capillary refill. Absent: tenderness, pedal edema - Back Exam Back exam: Present: normal inspection, full ROM. Absent: tenderness - Neurological Exam Neurological exam: Present: alert, oriented X3 - Psychiatric Psychiatric exam: Present: normal affect, normal mood - Skin Skin exam: Present: warm, dry, intact, normal color. Absent: rash, cyanosis, diaphoresis Course Course Narrative: Re-examined the patient again states she has a history of migraines. This is throbbing ache to the frontal aspect of her head. She has associated photophobia and nausea. This feels similar to her migraines but she has not had one in a while. Review of her medication list she takes lisinopril 10 mg daily and has not taken it today. Will give her Zofran which she takes at home along with the lisinopril to see if it brings down her blood pressure. Will evaluate the CT of the head to make sure there is no hemorrhagic bleed as we would emergent we need to bring down her blood pressure. If everything is okay will attempt a migraine cocktail to help alleviate some of her symptoms. - Reevaluation(s) Reevaluation #1: Patient significant other will be joining us later. The sun is in the room and states that the patient was recently seen by [facility] provider on Friday regarding the symptoms and was given medications with the patient states they seem to have made it worse. They have also noted that the facial droop appears new. I had the patient smile again and she continues to have a good nasolabial fold but at rest it appears that the right side is droopy. CT of the head showed some mild atrophy to the front pull lobe but no findings of acute intracranial hemorrhage. Patient had a reaction to the Benadryl. when given migraine cocktail. She reports some slight improvement of her headache in her blood pressure has come down to systolic 180. At this time she has yet to take her antihypertensive medication which has been ordered. The CT of her abdomen and pelvis does not reveal any acute abnormality. Review for labs show a lactate 3.4. She does not have a leukocytosis. Urinalysis is not consistent with infection. Suspect this is more likely dehydration given her symptoms of diarrhea. Patient was afebrile and not tachycardic to suggest sepsis at this time but will continue to look for any source. Patient may require hospitalization for this facial droop further evaluation as well as for generalized weakness and accelerated hypertension. Impression is generalized weakness, accelerated hypertension, migraine, lactic acidosis, dehydration. Time: 11:37 - Consultations Consultation #1: Spoke with on-call hospitalist wale Wolfe to admit for generalized weakness, accelerated hypertension, lactic acidosis. No further orders at this time Time: 12:30 Vital Signs Temperature 97.4 F L 08/17/17 09:13 Pulse Rate 59 08/17/17 09:13 Respiratory Rate 18 08/17/17 09:13 Blood Pressure 190/96 08/17/17 09:13 O2 Sat by Pulse Oximetry 97 08/17/17 09:13 Temperature 97.4 F L 08/17/17 09:13 Pulse Rate 58 08/17/17 10:48 Respiratory Rate 18 08/17/17 10:48 Blood Pressure 181/95 08/17/17 10:48 O2 Sat by Pulse Oximetry 95 08/17/17 10:48 Oxygen Delivery Oxygen Delivery Room Air Medical Decision Making - MDM Narrative Medical decision making narrative: Patient was discussed with my attending physician who agrees with ED management and final disposition. They independently evaluated the patient. Please refer to their attestation to this encounter for additional information. This note was generated by [employer] voice recognition software and as a result grammatical or spelling errors may occur using this program. - Medical Records Medical records reviewed: Yes I reviewed the patient's medical records. - Lab Data Lab results reviewed: Yes I reviewed the patient's lab results. Result diagrams: 08/17/17 09:16 08/17/17 11:46 Lab Results 08/17/17 08/17/17 08/17/17 Range/Units 09:16 09:16 09:16 WBC 8.6 (4.3-11.1) K/mcL RBC 4.09 (3.82-4.97) M/mcL Hgb 12.6 (11.5-15.4) g/dL Hct 38.3 (35.3-44.9) % MCV 93.6 (83.0-100.0) fL MCH 30.8 (28.0-33.3) pg MCHC 32.9 (31.6-35.5) g/dL RDW 13.0 (11.5-14.5) % Plt Count 192 (140-400) K/mcL MPV 10.3 (9.4-12.4) fL Immature Gran % 0.3 (0-4) % Seg Neutrophils % 70.8 % Lymphocytes % 21.0 % Monocytes % 6.6 % Eosinophils % 1.0 % Basophils % 0.3 % Neutrophils # 6.1 (1.6-8.9) K/mcL Lymphocytes # 1.8 (0.6-4.6) K/mcL Monocytes # 0.6 (0.0-1.3) K/mcL Eosinophils # 0.1 (0.0-0.6) K/mcL Basophils # 0.0 (0.0-0.2) K/mcL PT 12.2 H (9.4-12.1) Seconds INR 1.1 APTT 25.7 L (26.0-36.0) Seconds Sodium (136-145) mEq/L Potassium (3.5-5.1) mEq/L Chloride (98-107) mEq/L Carbon Dioxide (23-29) mEq/L BUN (8-23) mg/dL Creatinine (0.60-1.20) mg/dL Est GFR ( Amer) (> 60) Est GFR (Non-Af Amer) (> 60) BUN/Creatinine Ratio (6-26) Glucose (70-105) mg/dL POC Glucose 68 L (70-99) mg/dL Calculated Osmolality (280-300) Lactic Acid (0.5-2.2) mmol/L Calcium (8.6-10.3) mg/dL Phosphorus Magnesium Total Bilirubin (0.3-1.0) mg/dL Direct Bilirubin (0.0-0.2) mg/dL Indirect Bilirubin (0.0-1.2) mg/dL AST (13-39) Units/L ALT (7-52) Units/L Alkaline Phosphatase (34-104) Units/L Troponin I (< 0.04) ng/mL Serum Total Protein (6.4-8.9) g/dL Albumin (3.5-5.7) g/dL Globulin (2.4-3.5) g/dL Albumin/Globulin Ratio (1.1-2.2) Urine Color (Yellow) Urine Clarity (Clear) Urine pH (5.0-8.0) pH Units Ur Specific [place] (1.010-1.025) Urine Protein (Neg-Trace) mg/dL Urine Glucose (UA) (Normal) mg/dL Urine Ketones (Negative) mg/dL Urine Blood (Negative) Urine Nitrite (Negative) Urine Bilirubin (Negative) Urine Urobilinogen (Normal) mg/dL Ur Leukocyte Esterase (Negative) Ur Culture Indicated? (NO) Specimen Rejected 08/17/17 08/17/17 08/17/17 Range/Units 09:17 09:50 10:54 WBC (4.3-11.1) K/mcL RBC (3.82-4.97) M/mcL Hgb (11.5-15.4) g/dL Hct (35.3-44.9) % MCV (83.0-100.0) fL MCH (28.0-33.3) pg MCHC (31.6-35.5) g/dL RDW (11.5-14.5) % Plt Count (140-400) K/mcL MPV (9.4-12.4) fL Immature Gran % (0-4) % Seg Neutrophils % % Lymphocytes % % Monocytes % % Eosinophils % % Basophils % % Neutrophils # (1.6-8.9) K/mcL Lymphocytes # (0.6-4.6) K/mcL Monocytes # (0.0-1.3) K/mcL Eosinophils # (0.0-0.6) K/mcL Basophils # (0.0-0.2) K/mcL PT (9.4-12.1) Seconds INR APTT (26.0-36.0) Seconds Sodium (136-145) mEq/L Potassium (3.5-5.1) mEq/L Chloride (98-107) mEq/L Carbon Dioxide (23-29) mEq/L BUN (8-23) mg/dL Creatinine (0.60-1.20) mg/dL Est GFR ( Amer) (> 60) Est GFR (Non-Af Amer) (> 60) BUN/Creatinine Ratio (6-26) Glucose (70-105) mg/dL POC Glucose (70-99) mg/dL Calculated Osmolality (280-300) Lactic Acid 3.4 H (0.5-2.2) mmol/L Calcium (8.6-10.3) mg/dL Phosphorus Cancelled Magnesium Cancelled Total Bilirubin (0.3-1.0) mg/dL Direct Bilirubin (0.0-0.2) mg/dL Indirect Bilirubin (0.0-1.2) mg/dL AST (13-39) Units/L ALT (7-52) Units/L Alkaline Phosphatase (34-104) Units/L Troponin I < 0.03 (< 0.04) ng/mL Serum Total Protein (6.4-8.9) g/dL Albumin (3.5-5.7) g/dL Globulin (2.4-3.5) g/dL Albumin/Globulin Ratio (1.1-2.2) Urine Color Yellow (Yellow) Urine Clarity Clear (Clear) Urine pH 8.0 (5.0-8.0) pH Units Ur Specific [place] 1.010 (1.010-1.025) Urine Protein Negative (Neg-Trace) mg/dL Urine Glucose (UA) Normal (Normal) mg/dL Urine Ketones Negative (Negative) mg/dL Urine Blood Negative (Negative) Urine Nitrite Negative (Negative) Urine Bilirubin Negative (Negative) Urine Urobilinogen Normal (Normal) mg/dL Ur Leukocyte Esterase Negative (Negative) Ur Culture Indicated? NO (NO) Specimen Rejected 08/17/17 08/17/17 Range/Units 10:54 11:46 WBC (4.3-11.1) K/mcL RBC (3.82-4.97) M/mcL Hgb (11.5-15.4) g/dL Hct (35.3-44.9) % MCV (83.0-100.0) fL MCH (28.0-33.3) pg MCHC (31.6-35.5) g/dL RDW (11.5-14.5) % Plt Count (140-400) K/mcL MPV (9.4-12.4) fL Immature Gran % (0-4) % Seg Neutrophils % % Lymphocytes % % Monocytes % % Eosinophils % % Basophils % % Neutrophils # (1.6-8.9) K/mcL Lymphocytes # (0.6-4.6) K/mcL Monocytes # (0.0-1.3) K/mcL Eosinophils # (0.0-0.6) K/mcL Basophils # (0.0-0.2) K/mcL PT (9.4-12.1) Seconds INR APTT (26.0-36.0) Seconds Sodium 142 (136-145) mEq/L Potassium 3.9 (3.5-5.1) mEq/L Chloride 107 (98-107) mEq/L Carbon Dioxide 28 (23-29) mEq/L BUN 14 (8-23) mg/dL Creatinine 0.73 (0.60-1.20) mg/dL Est GFR ( Amer) > 60 (> 60) Est GFR (Non-Af Amer) > 60 (> 60) BUN/Creatinine Ratio 19 (6-26) Glucose 86 (70-105) mg/dL POC Glucose (70-99) mg/dL Calculated Osmolality 294 (280-300) Lactic Acid (0.5-2.2) mmol/L Calcium 9.9 (8.6-10.3) mg/dL Phosphorus 2.4 L Magnesium 2.2 Total Bilirubin 0.8 (0.3-1.0) mg/dL Direct Bilirubin 0.2 (0.0-0.2) mg/dL Indirect Bilirubin 0.6 (0.0-1.2) mg/dL AST 21 (13-39) Units/L ALT 13 (7-52) Units/L Alkaline Phosphatase 74 (34-104) Units/L Troponin I (< 0.04) ng/mL Serum Total Protein 6.8 (6.4-8.9) g/dL Albumin 4.2 (3.5-5.7) g/dL Globulin 2.6 (2.4-3.5) g/dL Albumin/Globulin Ratio 1.6 (1.1-2.2) Urine Color (Yellow) Urine Clarity (Clear) Urine pH (5.0-8.0) pH Units Ur Specific [place] (1.010-1.025) Urine Protein (Neg-Trace) mg/dL Urine Glucose (UA) (Normal) mg/dL Urine Ketones (Negative) mg/dL Urine Blood (Negative) Urine Nitrite (Negative) Urine Bilirubin (Negative) Urine Urobilinogen (Normal) mg/dL Ur Leukocyte Esterase (Negative) Ur Culture Indicated? (NO) Specimen Rejected Hemolyzed - Radiology Data Radiology results reviewed: Yes I reviewed the patient's radiology results. Head CT 08/17/17 09:16 IMPRESSION: No acute intracranial abnormality or interval change from September 2015. Moderate bilateral frontal lobe atrophy. Mild to moderate old microvascular ischemic change. D/ / Phill Cardona MD / Phill Cardona MD Interpreting Provider: Phill Cardona MD Chest X-Ray 08/17/17 09:18 IMPRESSION: 1. No acute cardiopulmonary disease. D/ / Frank Segovia MD / Frank Segovia MD Interpreting Provider: Frank Segovia MD Abdomen/Pelvis CT 08/17/17 09:19 IMPRESSION: Stable noncontrast findings within the abdomen and pelvis. No acute noncontrast abnormality. D/ / Paulette De La Cruz Cha, MD / Paulette De La Cruz Cha, MD Interpreting Provider: Paulette De La Cruz Cha, MD - EKG Data EKG #1 EKG attestation: Yes I reviewed and interpreted this EKG. EKG results narrative: EKG performed 921 sinus bradycardia 55 beats per minute, left axis deviation, good R wave progression, no ST elevation or depression, no T wave inversion. Intervals appear within normal limits NC interval 189 QRS 70 QT QTC 422 410. Compared to prior EKG performed 04/04/2017 shows sinus bradycardia 58 beats per minute with similar consistent findings. No acute ischemic changes. Attestation Statement - Attestation Attestation: Patient was seen with resident physician. I reviewed the history, physical, assessment and plan, and agree with the findings. I also personally evaluated this patient and had [id number] time with this patient. 82-year-old female presents to the emergency department with chief complaint of headache and neck pain in addition to diarrhea, nausea and generalized weakness. Patient states she has not been feeling well for the last couple days. Progressively getting worse to the point that she called the squad today. She has a history of CVA and cardiac disease. She was unable to take her blood pressure medication today. She also notes that she has been hypertensive. She denies fevers or chills. She has had some pain in the mid epigastric area of the stomach. No vomiting. Physical exam vital signs mildly hypertensive. Pulse rate 60 bpm. ENT unremarkable pupils are reactive. Neck is tender to palpation bilateral paraspinal muscles. Chest wall stable. Heart regular rhythm and rate. Lungs clear. Abdomen soft minimal tenderness somewhat diffusely but focused on the midepigastric area. Extremities are unremarkable. Neurologically patient seems to have a hypomobile area on the right side of her face. This does not appear to be new. She moves all of the cranial nerves without difficulty. Otherwise is neurologically intact. Skin no rashes. Psych flat affect. ED course we will do workup for possible CVA as well as abdominal pain. We will also treat patient's headache pain. On repeat evaluation patient states that she gets migraine headaches and this feels very similar to one of those and from a pain management standpoint that so we will focus on controlling the pain. we will also be ruling out other causes of her symptoms. Once head CT scan comes back okay we will plan on giving her her daily medication of antihypertensive. Hemodynamically she remained stable. Family was not sure of the facial droop that she had was new or old. At the very least it would be considered subacute. Patient improved throughout her stay, but her lactic acid level was elevated she seemed dehydrated with headaches and hypertension we felt admission for improvement in those things would be helpful. CTs did not demonstrate acute findings. Case was discussed with hospitalist service. I agree with resident physician assessment and plan.
[2017-08-17] MEDS ORDERED: Ondansetron 4 MG/2 ML VIAL IVP ONE (09:25)
[2017-08-17 10:07] LABS: Bilirubin,Urine Negative (Negative); Blood,Urine Negative (Negative); Clarity,Urine Clear (Clear); Color,Urine Yellow (Yellow); Glucose,Urine (UA) Normal (Normal); Ketones,Urine Negative (Negative); Leukocyte Esterase,Urine Negative (Negative); Nitrite,Urine Negative (Negative); Protein,Urine Negative (Neg-Trace); Urobilinogen,Urine Normal (Normal)
[2017-08-17] MEDS ORDERED: Metoclopramide 10 MG/2 ML VIAL IVP ONE (10:11)
[2017-08-17] MEDS ORDERED: Ketorolac 30 MG/ML VIAL IVP ONE (10:11)
[2017-08-17 10:31] LABS: Basophils % 0.3 %; Eosinophils # 0.1 K/mcL (0.0-0.6); Hematocrit 38.3 % (35.3-44.9); Hemoglobin 12.6 g/dL (11.5-15.4); Immature Granulocytes % 0.3 % (0-4); Lymphocytes # 1.8 K/mcL (0.6-4.6); Mean Corpuscular HGB Conc 32.9 g/dL (31.6-35.5); Mean Corpuscular Hemoglobin 30.8 pg (28.0-33.3); Mean Corpuscular Volume 93.6 fL (83.0-100.0); Mean Platelet Volume 10.3 fL (9.4-12.4); Monocytes # 0.6 K/mcL (0.0-1.3); Monocytes % 6.6 %; Neutrophils # 6.1 K/mcL (1.6-8.9); Platelet Count 192 K/mcL (140-400); Red Blood Count 4.09 M/mcL (3.82-4.97); Segmented Neutrophils % 70.8 %
[2017-08-17 10:38] LABS: INR 1.1; Prothrombin Time 12.2 Seconds (9.4-12.1)
[2017-08-17 10:40] LABS: Activated Partial Thrombo Time 25.7 Seconds (26.0-36.0)
[2017-08-17] MEDS ORDERED: 0.9 % Sodium Chloride 1,000 ML IVC ONE (11:25)
[2017-08-17 12:27] LABS: Alanine Aminotransferase 13 Units/L (7-52); Albumin 4.2 g/dL (3.5-5.7); Albumin/Globulin Ratio 1.6 (1.1-2.2); Alkaline Phosphatase 74 Units/L (34-104); Aspartate Amino Transferase 21 Units/L (13-39); BUN/Creatinine Ratio 19 (6-26); Bilirubin,Direct 0.2 mg/dL (0.0-0.2); Bilirubin,Indirect 0.6 mg/dL (0.0-1.2); Bilirubin,Total 0.8 mg/dL (0.3-1.0); Blood Urea Nitrogen 14 mg/dL (8-23); Calcium 9.9 mg/dL (8.6-10.3); Carbon Dioxide 28 mEq/L (23-29); Chloride 107 mEq/L (98-107); Globulin 2.6 g/dL (2.4-3.5); Glucose 86 mg/dL (70-105); Magnesium 2.2 mg/dL (1.6-2.6); Osmolality,Calculated 294 (280-300); Phosphorous 2.4 mg/dL (2.7-4.5); Potassium 3.9 mEq/L (3.5-5.1); Sodium 142 mEq/L (136-145); Total Protein 6.8 g/dL (6.4-8.9); eGFR For African Americans > 60 (> 60); eGFR For Non-African Americans > 60 (> 60)
[2017-08-17] MEDS ORDERED: Naloxone 0.4 MG/ML INJ IVP PRN ×2 (12:43→13:21)
--- NOTE | 2017-08-17 13:22 | Internal Med History&Physical ---
Date of Encounter: 08/17/17 Time of Encounter: 13:53 Internal Medicine - H&P: HPI Admitted From: Home Plans for Post Hospital Care: Home History of present illness: Ms. 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 Patient has lower abdominal pain associated with watery runny diarrhea for last 3-4 days that caused decreased oral intake and patient was not able to take her blood pressure medication. She also felt feverish with chills and some breathing difficulty but denies chest pain, cough. She has noticed dark urine with decrease output. She related her primary care physician on Friday for ongoing diarrhea complain and got some medication there slowed down the diarrhea but not sure the type. Last bowel movement yesterday afternoon. She still has the low end appetite. She already had history of migraine but had started to act up since yesterday but did not check blood pressure at home. In the ER right facial droop was noticed by ER physician but family was not aware, blood pressure was in 200 with normal troponin and no acute finding an EKG. CT head and chest x-ray with no acute finding. CT abdomen pelvis with no acute finding except in left lateral atelectasis or scarring. White count, urine analysis normal but lactate elevated. Initial treatment in ER was more than 3 L of fluid, lisinopril, pain medicine ketorolac and anti-emetine was given. ER physician called on-call hospitalist for the admission with diagnosis of accelerated hypertension, abdominal pain evaluation, TIA workup, possible sepsis. Patient complained of mild fever, chills, abdominal pain, decreased urine output with dark urine, diarrhea that has been resolved, shortness of breath but denies chest pain loss of consciousness, tingling and numbness or localized weakness but has generalized weakness. Past Med Surg Social Fam HX - Past Medical History Medical history: CVA, GERD, GI bleed, hyperlipidemia, hypertension, myocardial infarction Psychiatric history: anxiety, depression - Past Surgical History Surgical History: cholecystectomy, orthopedic, other - Social History Smoking Status: Never smoker Smokeless Tobacco Status: No Alcohol use: none Drug use: none - Family History Father Family Member Ethnicity: Non- Living Status: Hx Family Respiratory Disorders: Yes Mother Adopted: No Family Member Ethnicity: Non- Living Status: Hx Family Cardiac Disorders: Yes Hx Family Respiratory Disorders: Yes Hx Family Cancer: No Hx Family GI Disorders: No Hx Family Endocrine Disorder: No Hx Family Neuromuscular Disorders: No Hx Family Neurologic Disorders: Yes Internal Medicine - H&P: Meds Aspirin [Adult Low Dose Aspirin EC] 81 mg PO DAILY 04/30/15 [History] Atorvastatin [Lipitor] 80 mg PO HS 04/30/15 [History] Cyanocobalamin (Vitamin B-12) [Vitamin B-12] 500 mcg SL DAILY 04/30/15 [History] Docusate Sodium [Dok] 100 mg PO BID PRN #0 04/30/15 [History] Nitroglycerin 0.4 mg PO Q5-10MIN PRN 04/30/15 [History] Isosorbide MONOnitrate (24 HR) [Imdur] 60 mg PO DAILY #30 tab.er.24h 05/10/15 [ Rx] Cholecalciferol (D-3) [Vitamin D] 2,000 unit PO DAILY 10/26/15 [History] Cyclosporine [Restasis] 1 drop OP BID 10/26/15 [History] Donepezil [Aricept] 10 mg PO HS 10/26/15 [History] Fluticasone Propionate Nasal [Flonase] 100 mcg NS DAILY 10/26/15 [History] Pantoprazole Sodium 40 mg PO BID 30 Days tablet. 11/01/15 [Rx] Albuterol Sulfate [Albuterol Inhaler] 2 puff IH Q4H PRN 06/05/16 [History] BuPROPion XL (24 HR) [Wellbutrin Xl] 150 mg PO DAILY 06/05/16 [History] Loratadine [Claritin] 10 mg PO DAILY 06/05/16 [History] Losartan [Cozaar] 25 mg PO DAILY 06/05/16 [History] Promethazine [Phenergan] 25 mg PO Q6HR PRN #10 tablet 12/02/16 [Rx] Melatonin 3 mg PO HS PRN tab 12/14/16 [Rx] Ipratropium/Albuterol Neb [Duoneb] 3 ml IH Q4HR #30 vial.neb 04/04/17 [Rx] Amitriptyline [Elavil] 50 mg PO HS 08/17/17 [History] Buspirone HCl [Buspar] 7.5 mg PO BID 08/17/17 [History] Dicyclomine [Bentyl] 10 mg PO BID 08/17/17 [History] OxyCODONE/APAP 5/325 [Percocet 5/325 MG] 1 tab PO Q6HR PRN 08/17/17 [History] 3 Allergy/AdvReac Type Severity Reaction Status Date / Time No Known Allergies Allergy Verified 06/05/16 11:03 All Systems PM: A 10-system review of systems was performed and is negative for pertinent findings except as documented above in the HPI. - Constitutional Vitals: Temp Pulse Resp BP Pulse Ox 97.4 F L 62 18 176/97 95 08/17/17 09:13 08/17/17 12:54 08/17/17 12:54 08/17/17 12:54 08/17/17 10:48 Exam: General appearance: No acute distress, A&O X 3 and appears very tired. Family at bedside Head exam: Atraumatic Eye exam: EOMI, PERRLA ENT exam: Dry oral mucosa Neck nontender, supple Respiratory exam: Slight decreased breath sounds bibasilar Cardiovascular exam: Regular rate and rhythm, no systolic murmur Abdominal exam: Soft, diffuse tender at lower abdomen, nondistended, positive bowel sounds Extremities exam: No calf tenderness, no pedal edema Present: Skin-no rash, warm, dry, intact Neurological exam: Alert, awake, oriented 3, CN II-XII intact. Motor 5 x 5 in all 4 extremities. Right facial droop. Normal speech. Gait was not assessed as patient is too weak to walk. Internal Med - H&P Results - Labs CBC & Chem 7: 08/17/17 09:16 08/17/17 11:46 - Assessment and plan (1) Accelerated hypertension Current Visit: Yes Status: Acute Assessment and plan: History of chronic blood pressure. Not able to take antihypertensive medicine due to GI symptoms. That could be most likely but will also rule out CVA H patient had daily at bedtime history of CVA twice in the past. CT brain with no acute bleed. Will also perform CVA workup. Will review home medication and restart accordingly. Hydralazine when necessary. Will keep patient in limited tree. Serial troponin. (2) Abdominal pain Current Visit: Yes Status: Acute Assessment and plan: Lower abdominal pain with diarrhea possibility of infectious versus ischemic colitis. Patient is to symptomatic but normal white count and elevated lactate with no diarrhea is present. Symptomatic treatment and by mouth, IV fluid, antibiotics Cipro and Flagyl started. Will consult GI specialist if needed. Qualifiers: Abdominal location: lower abdomen, unspecified Qualified Code(s): R10.30 - Lower abdominal pain, unspecified (3) Lactic acidosis Current Visit: Yes Status: Acute Assessment and plan: Could be underlying infection due to abdominal pain versus dehydration or could be ischemic. Blood culture. Antibiotic and IV hydration is started. Will monitor lactic acid as well. (4) Atelectasis of left lung Current Visit: Yes Status: Acute Assessment and plan: Unknown region. Does not appear pneumonia. A spirometry and oxygen supplementation. (5) DVT prophylaxis Current Visit: No Status: Acute Assessment and plan: SCDs, Lovenox - Time Spent With Patient Total time spent is greater than 50% in coordination of care (as documented) at patient's floor/unit and/or counseling patient:
[2017-08-17] MEDS ORDERED: Melatonin 3 MG TABLET PO PRN (13:52)
[2017-08-17] MEDS ORDERED: Nitroglycerin 0.4 MG TAB.SUBL SL PRN (13:52)
[2017-08-17 14:50] LABS: Amylase 42 Units/L (29-103); Lipase 33 Units/L (11-82)
[2017-08-17] MEDS: Ipratropium/Albuterol Neb 3 ML IH SCH ×3 (15:32→23:54)
[2017-08-17] MEDS: 0.9 % Sodium Chloride 1,000 ML IVC SCH (16:24)
[2017-08-17] MEDS: MetroNIDAZOLE 500 MG/100 ML 500 MG/100 ML BAG IVPB SCH ×2 (16:24→23:15)
[2017-08-17] MEDS: (Cyclosporine [Restasis] 1 DROP) OP SCH (21:22)
[2017-08-18 01:51] LABS: Basophils % 0.3 %; Eosinophils # 0.1 K/mcL (0.0-0.6); Eosinophils % 2.2 %; Hematocrit 37.1 % (35.3-44.9); Immature Granulocytes % 0.3 % (0-4); Lymphocytes # 1.2 K/mcL (0.6-4.6); Lymphocytes % 19.8 %; Mean Corpuscular HGB Conc 32.3 g/dL (31.6-35.5); Mean Corpuscular Hemoglobin 30.8 pg (28.0-33.3); Mean Corpuscular Volume 95.1 fL (83.0-100.0); Mean Platelet Volume 10.3 fL (9.4-12.4); Monocytes # 0.5 K/mcL (0.0-1.3); Monocytes % 7.9 %; Neutrophils # 4.1 K/mcL (1.6-8.9); Platelet Count 179 K/mcL (140-400); Red Cell Distribution Width 12.9 % (11.5-14.5); Segmented Neutrophils % 69.5 %
[2017-08-18] MEDS: Ipratropium/Albuterol Neb 3 ML IH SCH ×4 (03:16→16:19)
[2017-08-18] MEDS: 0.9 % Sodium Chloride 1,000 ML IVC SCH (05:17)
[2017-08-18] MEDS ORDERED: *HR* Enoxaparin 40 MG/0.4 ML SYRINGE SQ SCH (06:00)
[2017-08-18] MEDS: MetroNIDAZOLE 500 MG/100 ML 500 MG/100 ML BAG IVPB SCH (07:57)
[2017-08-18] MEDS: (Cyclosporine [Restasis] 1 DROP) OP SCH (08:04)
[2017-08-18] MEDS ORDERED: Cholecalciferol (D-3) 1,000 UNIT TABLET PO SCH (09:00)
[2017-08-18] MEDS ORDERED: Fluticasone Propionate Nasal 50 MCG/SPRAY BOTTLE NS SCH (09:00)
[2017-08-18] MEDS ORDERED: Loratadine 10 MG TABLET PO SCH (09:00)
[2017-08-18] MEDS ORDERED: Cyanocobalamin (B-12) 1,000 MCG TABLET PO SCH (09:00)
[2017-08-18] MEDS ORDERED: Isosorbide MONOnitrate (24 HR) 60 MG TAB.ER.24H PO SCH (09:00)
[2017-08-18] MEDS ORDERED: Aspirin Enteric Coated 81 MG Tablet PO SCH (09:00)
[2017-08-18] MEDS ORDERED: BuPROPion XL (24 HR) 150 MG TABLET PO SCH (09:00)
[2017-08-18 11:26] VITALS: BP 149/90
--- NOTE | 2017-08-18 14:14 | Discharge Summary ---
- NOTES TO OUTPATIENT PROVIDER Notes to Outpatient Provider: Patient to follow-up with her primary care physician within the week. She was admitted with nausea vomiting diarrhea and a headache. She states she has had no further bowel movements and actually feels will constipated now. She tolerated breakfast and lunch. She would like to be discharged home. Discussed her findings of her carotid Dopplers, brain MRI and echocardiogram. Orders not resulted at time of discharge: Pending orders 08/17/17 13:43 Fecal Hemoccult [Occult Blood,Stool] [BF] Stat 08/17/17 14:14 Culture,Blood,Additional [BC] Routine Date of Encounter: 08/18/17 Time of Encounter: 14:06 - Discharge Diagnosis (1) Accelerated hypertension Priority: Primary Status: Resolved Assessment and Plan: History of chronic blood pressure. Not able to take antihypertensive medicine due to GI symptoms before admission. Patient had daily at bedtime history of CVA twice in the past. CT brain with no acute bleed. MRI with no acute changes , carotids right with minimal plaquing and left with 40-59% plaquing. Serial troponin trended at 0.033 Headache is resolved (2) Lactic acidosis Priority: Primary Status: Resolved Assessment and Plan: Blood cultures pending. Antibiotic and IV hydration from ER. Lactic acid normalized. Afebrile with no white count (3) Abdominal pain Priority: Primary Status: Acute Assessment and Plan: Lower abdominal pain with diarrhea possibility of infectious versus ischemic colitis. Patient with normal white count and elevated lactate which normalized after fluid given in the ER.. Patient received, IV fluids, antibiotics Cipro and Flagyl Diarrhea resolved before admission to the hospital. Her abdominal pain has improved and she is tolerating a diet. She is anxious for discharge. She has no further nausea, no vomiting during admission. CT of the abdomen and pelvis with no contrast reported - stable noncontrast findings within the abdomen and pelvis no acute noncardiac contrast abnormalities Will discharge on oral Cipro, Flagyl and probiotic. Discussed to slowly increase diet and avoid foods that cause her to be nauseated such as fatty foods or heavy diet. Qualifiers: Abdominal location: lower abdomen, unspecified Qualified Code(s): R10.30 - Lower abdominal pain, unspecified (4) Atelectasis of left lung Priority: Primary Status: Acute Assessment and Plan: Continue spirometry, no oxygen supplementation required. (5) Nausea and vomiting Priority: Primary Status: Resolved Qualifiers: Vomiting type: unspecified Vomiting Intractability: non-intractable Qualified Code(s): R11.2 - Nausea with vomiting, unspecified (6) Diarrhea Priority: Primary Status: Resolved Qualifiers: Diarrhea type: unspecified type Qualified Code(s): R19.7 - Diarrhea, unspecified Hospital course: Ms. Thomas is a 82 year old female with history of hypertension, prior CVA, chronic migraine headaches, GI bleed, GERD, hyperlipidemia, hypertension myocardial infarction anxiety and depression presented to the emergency room the EMS for generalized weakness, headache and diarrhea. She had lower abdominal pain with watery runny diarrhea 3-4 days with decreased oral intake before admission. She was not able to take her blood pressure medicine and her blood pressure was elevated. She has felt feverish with chills and some shortness of breath but denied chest pain or cough. Her urine had darkened and she had a decreased output. In the ER she had right facial droop noted by the ER physician which has resolved. Blood pressure was in the 200s with normal troponins and no acute findings on her EKG. CT of the head and chest x-ray with no acute findings. CT abdomen and pelvis with no acute findings except left lateral atelectasis or scarring. She had no white count. Urinalysis was normal. Lactate initially was elevated treated with fluids and normalized. She is now tolerating her diet, has had no further nausea vomiting or diarrhea. She is on room air. Brain MRI was negative for acute findings. Carotids showed minimal plaquing on the right and left 40-59% blockage. Discussed with the patient that she could stay another day and be monitored or she could go home on oral Flagyl Cipro and probiotic and slowly advance her diet as tolerated. She has no white count her blood cultures are pending. She opted to go home and follow-up with her primary care physician. Really never at the bedside will get her prescriptions and take her home. All questions were answered, vital signs are stable, and once again she is afebrile with no white count no diarrhea and no nausea or vomiting. Discharge discussed with: patient, family, nurse - Time Spent with Patient Total time spent providing and/or coordinating discharge services: Less than 30 minutes - Discharge Medications Prescriptions: Ciprofloxacin HCl [Cipro] 250 mg PO BID 7 Days #14 tab Lactobac Cmb #3/Fos/Pantethine [Probiotic & Acidophilus Cap] 1 each PO DAILY #7 capsule metroNIDAZOLE [Flagyl] 500 mg PO TID 7 Days #21 tablet Home Medications: Aspirin [Adult Low Dose Aspirin EC] 81 mg PO DAILY 04/30/15 [History] Atorvastatin [Lipitor] 80 mg PO HS 04/30/15 [History] Cyanocobalamin (Vitamin B-12) [Vitamin B-12] 500 mcg SL DAILY 04/30/15 [History] Nitroglycerin 0.4 mg PO Q5-10MIN PRN 04/30/15 [History] Isosorbide MONOnitrate (24 HR) [Imdur] 60 mg PO DAILY #30 tab.er.24h 05/10/15 [ Rx] Cholecalciferol (D-3) [Vitamin D] 2,000 unit PO DAILY 10/26/15 [History] Cyclosporine [Restasis] 1 drop OP BID 10/26/15 [History] Donepezil [Aricept] 10 mg PO HS 10/26/15 [History] Fluticasone Propionate Nasal [Flonase] 100 mcg NS DAILY 10/26/15 [History] Pantoprazole Sodium 40 mg PO BID 30 Days tablet. 11/01/15 [Rx] Albuterol Sulfate [Albuterol Inhaler] 2 puff IH Q4H PRN 06/05/16 [History] BuPROPion XL (24 HR) [Wellbutrin Xl] 150 mg PO DAILY 06/05/16 [History] Loratadine [Claritin] 10 mg PO DAILY 06/05/16 [History] Losartan [Cozaar] 25 mg PO DAILY 06/05/16 [History] Promethazine [Phenergan] 25 mg PO Q6HR PRN #10 tablet 12/02/16 [Rx] Melatonin 3 mg PO HS PRN tab 12/14/16 [Rx] Ipratropium/Albuterol Neb [Duoneb] 3 ml IH Q4HR #30 vial.neb 04/04/17 [Rx] Amitriptyline [Elavil] 50 mg PO HS 08/17/17 [History] Buspirone HCl [Buspar] 7.5 mg PO BID 08/17/17 [History] Dicyclomine [Bentyl] 10 mg PO BID 08/17/17 [History] OxyCODONE/APAP 5/325 [Percocet 5/325 MG] 1 tab PO Q6HR PRN 08/17/17 [History] Ciprofloxacin HCl [Cipro] 250 mg PO BID 7 Days #14 tab 08/18/17 [Rx] Lactobac Cmb #3/Fos/Pantethine [Probiotic & Acidophilus Cap] 1 each PO DAILY #7 capsule 08/18/17 [Rx] metroNIDAZOLE [Flagyl] 500 mg PO TID 7 Days #21 tablet 08/18/17 [Rx] Allergies/Adverse Reactions: 3 Allergy/AdvReac Type Severity Reaction Status Date / Time No Known Allergies Allergy Verified 06/05/16 11:03 Date of admission: 08/17/17 12:43 Primary care physician: Rocio Rausch CARD [facility]USHER Discharging clinician: Mitzy Pruett Anticipated date of discharge: 08/18/17 - Constitutional Vitals: Temp Pulse Resp BP Pulse Ox 97.9 F 66 16 149/90 99 08/18/17 11:25 08/18/17 11:25 08/18/17 11:25 08/18/17 11:25 08/18/17 11:25 General appearance: Present: cooperative, A&O X 3, pleasant, no acute distress, answers questions appropriately - Head Head exam: Present: atraumatic, normocephalic - Eye Eye exam: Present: PERRL, conjuntiva pink, sclera anicteric Pupils: Present: PERRL - Neck Neck exam general surgery: Present: normal inspection, supple, trachea midline. Absent: lymphadenopathy, tenderness - Respiratory Respiratory exam: Present: CTAB. Absent: accessory muscle use, rales, rhonchi, wheezes - Cardiovascular Cardiovascular exam: Present: RRR, +S1, +S2. Absent: diastolic murmur, gallop, rubs, systolic murmur - GI/Abdominal GI/Abdominal exam: Present: normal bowel sounds, soft, no peritoneal signs. Absent: distended, guarding, tenderness - Extremities Exam Extremities exam: Present: warm, radial pulses palpable and symmetrical. Absent : calf tenderness, cyanotic, pedal edema - Neurological Exam Neurological exam: Present: alert, CN II-XII intact, oriented X3, no focal deficits, strengths equal and symetr throughout. Absent: pronater drift, facial droop, speech deficit - Skin Skin exam: Present: dry, intact, normal color, warm - Patient Status Disposition: Home, Self-Care Condition: Good Functional capacity at discharge: independent ambulation Overall status at discharge: patient is progressing back to baseline - Discharge Instructions Follow Up With: Rocio aRusch CNP [Primary Care Provider] - - Diet and Activity Activity: increase activity as tolerated Diet: advance to your usual diet
--- NOTE | 2017-08-19 06:00 | Electrocardiograph Report ---
[place] [id number] Test Date: 2017-08-17 Pat Name: Kimberly Thomas Department: 104 Room: 3B13 Gender: F Sleeping Car Porter: [facility] : 1935 Requested By: Ruslan Harris Order Number: [id number] Reading MD: Feroz Wu Measurements Intervals [place] Rate: 55 P: 81 KS: 189 QRS: -37 QRSD: 70 T: 51 QT: 422 QTc: 410 Interpretive Statements SINUS BRADYCARDIA MARKED LEFT AXIS DEVIATION Electronically Signed On 08-19-2017 5:59:02 EDT by Feroz Wu
== END 2017-08-18 15:23 | disposition home or self-care (01) | DRG 305 ==
LOC: 3BNU 09:11 → EMEROO 09:11 → 3BNU 13:28
PROVIDERS: ADMIT Family Medicine; ATTEND Family Medicine

== ENCOUNTER 2018-03-15 16:23 | Observation (INO) ==
[2018-03-15] MEDS ORDERED: Ondansetron 4 MG/2 ML VIAL IVP ONE (16:40)
[2018-03-15] MEDS ORDERED: 0.9 % Sodium Chloride 1,000 ML IVC ONE (16:40)
[2018-03-15] MEDS ORDERED: cefTRIAXone 1,000 MG in 0.9 % Sodium Chloride Mini Bag 100 ML IVPB ONE (16:43)
[2018-03-15] MEDS ORDERED: Isovue-370 500 ML INFUS..BTL IV ONE (16:44)
--- NOTE | 2018-03-15 16:49 | Emergency Department Note ---
Disposition Clinical Impression: Failure of outpatient treatment, Cystic mass of pancreas, Elevated alkaline phosphatase level Urinary tract infection Qualifiers: Urinary tract infection type: acute cystitis Hematuria presence: without hematuria Qualified Code(s): N30.00 - Acute cystitis without hematuria Disposition: Admitted As Inpatient Condition: Good Time of Disposition: 19:42 General Adult HPI - General Chief complaint: UC Urogenital-Female Stated complaint: Abdominal pain Time Seen by Provider: 03/15/18 16:29 Source: EMS Limitations: altered mental status, age Nursing Notes Reviewed: Yes Vital Signs Reviewed: Yes - History of Present Illness HPI Narrative: 82 y/o female with history of dementia, CAD with ND s/p cath Dec 2017 with no stent, GERD presents to the ED with complaints of worsening, severe burning abdominal pain that radiates to her back for the past 4 days. Located suprapubic. Associated with burning on urination. Patient states that she saw her PCP 3 days days ago and was started on an unknown antibiotic and AZO for a UTI. Patient notes that her pain always present, but worsens when she urinates. She states that her pain feels like previous UTI's in quality but is more severe in intensity. She notes that she has also had intermittent non radiating chest heaviness and dyspnea for several days. She notes she often has similar chest heaviness when she is not feeling well. Patient notes that she is supposed to use oxygen at home but cannot recall why it was prescribed. She notes that she normally chooses not to use the oxygen but started using it today as she felt in creasing short of breath. Patient denies vaginal discharge, fever, chills, bowel changes, leg swelling, history of a fib, diabetes or blood clots. Pt Subjective Complaint: Abdominal pain Onset (ago): day(s) (4) Location: abdomen Radiation: back Pain Severity: severe, similar to prior episodes Pain Scale: 10 Quality: burning Consistency: constant, Worsening Improves with: nothing Worsens with: other (urination) Associated symptoms: Reports: chest pain, loss of appetite, nausea/vomiting (without emesis), shortness of breath. Denies: cough, diaphoresis, fever/chills Treatments Prior to Arrival: other (unkown antibiotic, azo) - Related Data Home Medications Medication Instructions Recorded Confirmed Atorvastatin [Lipitor] 80 mg PO HS 04/30/15 03/15/18 Fluticasone Propionate Nasal 100 mcg NS DAILY 10/26/15 03/15/18 [Flonase] Losartan [Cozaar] 25 mg PO DAILY 06/05/16 03/15/18 Amitriptyline [Elavil] 50 mg PO HS 08/17/17 03/15/18 Dicyclomine [Bentyl] 10 mg PO BID 08/17/17 03/15/18 Aspirin [Lo-Dose Aspirin EC] 81 mg PO DAILY 12/30/17 03/15/18 Cholecalciferol (Vitamin D3) 400 unit PO DAILY 12/30/17 03/15/18 [Vitamin D3] DULoxetine [Cymbalta] 20 mg PO DAILY 12/30/17 03/15/18 Donepezil HCl [Aricept] 10 mg PO HS 12/30/17 03/15/18 Ondansetron HCl [Zofran] 4 mg PO Q6H PRN 12/30/17 03/15/18 Vitamin B Complex Vit C No.4 1 tab PO DAILY 12/30/17 03/15/18 [Super B Complex] Calcium Citrate 03/15/18 Previous Rx's Medication Instructions Recorded Isosorbide MONOnitrate (24 HR) 60 mg PO DAILY #30 tab.er.24h 05/10/15 [Imdur] Pantoprazole Sodium 40 mg PO BID 30 Days tablet. 11/01/15 amLODIPine [Norvasc] 5 mg PO DAILY 30 Days #30 tablet 01/04/18 Allergies Allergy/AdvReac Type Severity Reaction Status Date / Time No Known Allergies Allergy Verified 12/25/17 14:31 All systems ED: reviewed and negative except as stated. Review of Systems: As Per HPI Constitutional: Denies: fever, chills Eyes: Denies: vision change ENT ED: Denies: dysphagia Cardiovascular: Reports: chest pain. Denies: palpitations, edema Respiratory: Reports: dyspnea. Denies: cough, wheezes, hemoptysis Gastrointestinal: Reports: abdominal pain, nausea. Denies: vomiting, diarrhea, constipation, melena, hematochezia Genitourinary: Reports: urgency, dysuria. 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 Absent: conjunctival injection - ENT ENT exam: mucous membranes moist - Neck Neck exam: Present: trachea midline - Chest Chest inspection: Present: symmetric chest wall rise. Absent: tenderness - Respiratory Respiratory exam: Present: normal lung sounds bilaterally, other (tachypnea). Absent: respiratory distress - Cardiovascular Cardiovascular exam: Present: tachycardia, normal heart sounds - Abdominal Exam Abdominal exam: Present: soft, tenderness, normal bowel sounds. Absent: distention, guarding, rebound Abdominal tenderness: Present: epigastrium, suprapubic, severe (epigastric worse than suprapubic) - Extremities Exam Extremities exam: Present: normal inspection. Absent: pedal edema, joint swelling - Back Exam Back exam: Present: CVA tenderness (R), CVA tenderness (L) - Neurological Exam Neurological exam: Present: alert, oriented X3 - Psychiatric Psychiatric exam: Present: normal affect, normal mood - Skin Skin exam: Present: warm, dry, intact Course Course Narrative: Chart check in [facility]: Unable to find the patient or her current antibiotic prescription. Chart check in [facility]: Patient has no recent urinalysis or urine cultures. No recent reports regarding UTI. Blood and urine cultures are pending. Patient has received 1 g empiric Rocephin EKG dated 03/15/20 1816:54 interpreted as sinus rhythm with rate of 71. NC 177, QRS 92, QTC 429. Left axis. Nonspecific ST-T changes. Compared to previous EKG dated 01/04/2018 showing no acute ischemic changes or comparison. Patient's family now at bedside. They note the patient's UTI symptoms have been ongoing for the past month and she has been seen and treated 3x for UTI in that month period. Antibiotic regimens unknown to them. Additionally, patient is being seen in [place] by unknown provider for "Pelvic floor problem" otherwise unknown to them. Serum hematology shows no leukocytosis or leukocytopenia. Patient is mildly anemic which is at her baseline. Serum chemistry shows normal electrolytes, normal renal function. No elevation in lipase. Concern for markedly elevation in alkaline phosphatase which is new from patient's baseline. Bedside ultrasound does not conclusively show a dilated common biliary duct. Patient is status post remote cholecystectomy. Concern that this could be in part related to the new cystic lesion at the head of the pancreas. Right upper quadrant ultrasound has been ordered. I discussed the above with the patient's family. They are agreeable to admission for continued evaluation. Next I discussed the above the admitting hospitalist. He agrees to accept patient for continued management of UTI, right upper quadrant ultrasound pending, and likely MRI pancreas for continued evaluation of the new cystic lesion at the pancreatic head. Abdomen/Pelvis CT 03/15/18 16:44 IMPRESSION: 1. No acute abnormality in the abdomen or pelvis. 2. Subacute to chronic nondisplaced fractures of the left pubic bone and bilateral sacral alae new from 12/25/2017. 3. 15 x 13 mm cystic lesion in the head of the pancreas mildly increased in size from 12/25/2017 and new from 12/09/2016. Further evaluation could be obtained with MRI or fine-needle aspiration. Alternatively, repeat exam in 6 months could be obtained. 4. 3.3 cm left adnexal cystic structure. Consider further evaluation with nonemergent pelvic ultrasound. 5. Status post cholecystectomy and hysterectomy. D/ / Feroz Sosa MD / Ferzo Sosa MD Interpreting Provider: Feroz Sosa MD Vital Signs Temperature 98.6 F 03/15/18 16:30 Pulse Rate 70 03/15/18 16:30 Respiratory Rate 20 03/15/18 16:30 Blood Pressure 154/93 03/15/18 16:30 O2 Sat by Pulse Oximetry 95 03/15/18 16:30 Temperature 98.6 F 03/15/18 17:09 Pulse Rate 75 03/15/18 19:00 Respiratory Rate 20 03/15/18 19:00 Blood Pressure 166/78 03/15/18 19:00 O2 Sat by Pulse Oximetry 98 03/15/18 19:00 Oxygen Delivery Oxygen Delivery Room Air Medical Decision Making - Lab Data Result diagrams: 03/15/18 16:40 03/15/18 16:40 Lab Results 03/15/18 03/15/18 03/15/18 Range/Units 16:40 16:40 16:52 WBC 7.2 (4.3-11.1) K/mcL RBC 3.58 L (3.82-4.97) M/mcL Hgb 11.3 L (11.5-15.4) g/dL Hct 34.7 L (35.3-44.9) % MCV 96.9 (83.0-100.0) fL MCH 31.6 (28.0-33.3) pg MCHC 32.6 (31.6-35.5) g/dL RDW 13.9 (11.5-14.5) % Plt Count 330 (140-400) K/mcL MPV 9.4 (9.4-12.4) fL Immature Gran % 0.3 (0-4) % Seg Neutrophils % 63.5 % Lymphocytes % 26.9 % Monocytes % 7.9 % Eosinophils % 1.0 % Basophils % 0.4 % Neutrophils # 4.6 (1.6-8.9) K/mcL Lymphocytes # 1.9 (0.6-4.6) K/mcL Monocytes # 0.6 (0.0-1.3) K/mcL Eosinophils # 0.1 (0.0-0.6) K/mcL Basophils # 0.0 (0.0-0.2) K/mcL Sodium 141 (136-145) mEq/L Potassium 4.3 (3.5-5.1) mEq/L Chloride 107 (98-107) mEq/L Carbon Dioxide 25 (23-29) mEq/L BUN 11 (8-23) mg/dL Creatinine 0.69 (0.60-1.20) mg/dL Est GFR ( Amer) > 60 (> 60) Est GFR (Non-Af Amer) > 60 (> 60) BUN/Creatinine Ratio 16 (6-26) Glucose 94 (70-105) mg/dL Calculated Osmolality 291 (280-300) Lactic Acid (0.5-2.2) mmol/L Calcium 9.9 (8.6-10.3) mg/dL Total Bilirubin 0.9 (0.3-1.0) mg/dL Direct Bilirubin 0.2 (0.0-0.2) mg/dL Indirect Bilirubin 0.7 (0.0-1.2) mg/dL AST 27 (13-39) Units/L ALT 67 H (7-52) Units/L Alkaline Phosphatase 220 H (34-104) Units/L Troponin I < 0.03 (< 0.04) ng/mL Serum Total Protein 6.1 L (6.4-8.9) g/dL Albumin 3.8 (3.5-5.7) g/dL Globulin 2.3 L (2.4-3.5) g/dL Albumin/Globulin Ratio 1.7 (1.1-2.2) Lipase 66 (11-82) Units/L Urine Color [place] A (Yellow) Urine Clarity Clear (Clear) Urine pH 7.0 (5.0-8.0) pH Units Ur Specific [place] < 1.005 L (1.010-1.025) Urine Protein Negative (Neg-Trace) mg/dL Urine Glucose (UA) Normal (Normal) mg/dL Urine Ketones Trace H (Negative) mg/dL Urine Blood Negative (Negative) Urine Nitrite Positive A (Negative) Urine Bilirubin Negative (Negative) Urine Urobilinogen Normal (Normal) mg/dL Ur Leukocyte Esterase Small H (Negative) Urine Microscopic RBC 5-15 H (0-3) per hpf Urine Microscopic WBC 0-3 (0-3) per hpf Ur Squamous Epith Cells Moderate H (None-Few) per lpf Urine Bacteria None Seen (None-Few) per hpf Hyaline Casts None Seen (None-Few) per lpf Ur Culture Indicated? YES A (NO) 03/15/18 Range/Units 17:04 WBC (4.3-11.1) K/mcL RBC (3.82-4.97) M/mcL Hgb (11.5-15.4) g/dL Hct (35.3-44.9) % MCV (83.0-100.0) fL MCH (28.0-33.3) pg MCHC (31.6-35.5) g/dL RDW (11.5-14.5) % Plt Count (140-400) K/mcL MPV (9.4-12.4) fL Immature Gran % (0-4) % Seg Neutrophils % % Lymphocytes % % Monocytes % % Eosinophils % % Basophils % % Neutrophils # (1.6-8.9) K/mcL Lymphocytes # (0.6-4.6) K/mcL Monocytes # (0.0-1.3) K/mcL Eosinophils # (0.0-0.6) K/mcL Basophils # (0.0-0.2) K/mcL Sodium (136-145) mEq/L Potassium (3.5-5.1) mEq/L Chloride (98-107) mEq/L Carbon Dioxide (23-29) mEq/L BUN (8-23) mg/dL Creatinine (0.60-1.20) mg/dL Est GFR ( Amer) (> 60) Est GFR (Non-Af Amer) (> 60) BUN/Creatinine Ratio (6-26) Glucose (70-105) mg/dL Calculated Osmolality (280-300) Lactic Acid 1.3 (0.5-2.2) mmol/L Calcium (8.6-10.3) mg/dL Total Bilirubin (0.3-1.0) mg/dL Direct Bilirubin (0.0-0.2) mg/dL Indirect Bilirubin (0.0-1.2) mg/dL AST (13-39) Units/L ALT (7-52) Units/L Alkaline Phosphatase (34-104) Units/L Troponin I (< 0.04) ng/mL Serum Total Protein (6.4-8.9) g/dL Albumin (3.5-5.7) g/dL Globulin (2.4-3.5) g/dL Albumin/Globulin Ratio (1.1-2.2) Lipase (11-82) Units/L Urine Color (Yellow) Urine Clarity (Clear) Urine pH (5.0-8.0) pH Units Ur Specific [place] (1.010-1.025) Urine Protein (Neg-Trace) mg/dL Urine Glucose (UA) (Normal) mg/dL Urine Ketones (Negative) mg/dL Urine Blood (Negative) Urine Nitrite (Negative) Urine Bilirubin (Negative) Urine Urobilinogen (Normal) mg/dL Ur Leukocyte Esterase (Negative) Urine Microscopic RBC (0-3) per hpf Urine Microscopic WBC (0-3) per hpf Ur Squamous Epith Cells (None-Few) per lpf Urine Bacteria (None-Few) per hpf Hyaline Casts (None-Few) per lpf Ur Culture Indicated? (NO) Attestation Statement - Attestation Attestation: I examined this patient and my medical decision-making was reviewed with the Resident Physician. I agree with the documented findings, disposition and treatment plan as described except to the extent set forth below. Findings consistent with abd pain, concern for possible pancreatic cancer. I would admit for abd MRI and GI consultation. Additionally, I would treat her UTI with rocephin and obtain cultures. The patient will be admitted for further management and workup.
[2018-03-15] MEDS ORDERED: *HR* FentaNYL (PF) 100 MCG/2 ML VIAL IVP ONE ×2 (17:00→18:54)
[2018-03-15 17:10] LABS: Bilirubin,Urine Negative (Negative); Blood,Urine Negative (Negative); Clarity,Urine Clear (Clear); Color,Urine Orange (Yellow); Glucose,Urine (UA) Normal (Normal); Ketones,Urine Trace mg/dL (Negative); Leukocyte Esterase,Urine Small (Negative); Nitrite,Urine Positive (Negative); Protein,Urine Negative (Neg-Trace); Specific Gravity,Urine < 1.005 (1.010-1.025); Urobilinogen,Urine Normal (Normal)
[2018-03-15 17:13] LABS: Bacteria,Urine None Seen per hpf (None-Few); Hyaline Casts,Urine None Seen per lpf (None-Few); Squamous Epithelial Cell,Urine Moderate per lpf (None-Few); WBC,Urine 0-3 per hpf (0-3)
[2018-03-15 17:22] LABS: Basophils % 0.4 %; Eosinophils # 0.1 K/mcL (0.0-0.6); Hematocrit 34.7 % (35.3-44.9); Hemoglobin 11.3 g/dL (11.5-15.4); Immature Granulocytes % 0.3 % (0-4); Lymphocytes # 1.9 K/mcL (0.6-4.6); Lymphocytes % 26.9 %; Mean Corpuscular HGB Conc 32.6 g/dL (31.6-35.5); Mean Corpuscular Hemoglobin 31.6 pg (28.0-33.3); Mean Corpuscular Volume 96.9 fL (83.0-100.0); Mean Platelet Volume 9.4 fL (9.4-12.4); Monocytes # 0.6 K/mcL (0.0-1.3); Monocytes % 7.9 %; Neutrophils # 4.6 K/mcL (1.6-8.9); Platelet Count 330 K/mcL (140-400); Red Blood Count 3.58 M/mcL (3.82-4.97); Red Cell Distribution Width 13.9 % (11.5-14.5); Segmented Neutrophils % 63.5 %
[2018-03-15 17:40] LABS: Troponin I < 0.03 ng/mL (< 0.04)
[2018-03-15 17:41] LABS: Alanine Aminotransferase 67 Units/L (7-52); Albumin 3.8 g/dL (3.5-5.7); Albumin/Globulin Ratio 1.7 (1.1-2.2); Alkaline Phosphatase 220 Units/L (34-104); Aspartate Amino Transferase 27 Units/L (13-39); BUN/Creatinine Ratio 16 (6-26); Bilirubin,Direct 0.2 mg/dL (0.0-0.2); Bilirubin,Indirect 0.7 mg/dL (0.0-1.2); Bilirubin,Total 0.9 mg/dL (0.3-1.0); Blood Urea Nitrogen 11 mg/dL (8-23); Calcium 9.9 mg/dL (8.6-10.3); Carbon Dioxide 25 mEq/L (23-29); Chloride 107 mEq/L (98-107); Globulin 2.3 g/dL (2.4-3.5); Glucose 94 mg/dL (70-105); Lipase 66 Units/L (11-82); Osmolality,Calculated 291 (280-300); Potassium 4.3 mEq/L (3.5-5.1); Sodium 141 mEq/L (136-145); Total Protein 6.1 g/dL (6.4-8.9); eGFR For Non-African Americans > 60 (> 60)
[2018-03-15] MEDS ORDERED: *HR* LORazepam 2 MG/ML VIAL IVP ONE (19:36)
[2018-03-15] MEDS ORDERED: Ondansetron 4 MG/2 ML VIAL IVP PRN (21:19)
[2018-03-15] MEDS ORDERED: Acetaminophen 325 MG TABLET PO PRN (21:19)
[2018-03-15] MEDS ORDERED: Naloxone 0.4 MG/ML INJ IVP PRN (21:19)
--- NOTE | 2018-03-15 21:31 | Internal Med History&Physical ---
Date of Encounter: 03/15/18 Time of Encounter: 20:30 Internal Medicine - H&P: HPI Chief complaint: UTI; vomiting; weight loss Admitted From: Emergency Dept Plans for Post Hospital Care: Home History of present illness: Ms. Thomas is a 82 year old female who presents to the ER tonight after several week history of persistent UTI with worsening nausea, vomiting, and unintentional weight loss. She has been on 3 different antibiotics without relief. She therefore came to the ER for evaluation. Workup confirmed suspic ion for UTI. However, she underwent CT scan of abdomen and pelvis, which revealed a cystic lesion in her pancreas. She was therefore admitted to the hospitalist service. Upon my assessment of the patient, patient and her granddaughter confirmed the above history. She suffers from chronic GI upset and has been followed by gastroenterology regarding the pancreatic head cyst. I reviewed old records and MRIs confirming the cyst in her pancreatic head. Her last MRI imaging was in May of this year which document stability. However, CT scan suggests possible enlargement. She has had some unintentional weight loss of about 5 pounds in the last few months. Given her weight loss and elevated LFTs, I'm concerned about possible malignant versus obstructive process. Additionally, her GI symptoms may be secondary to her UTI symptoms. She denies any flank pains. She has had subjective fevers but no chills or night sweats. She has never had an ERCP Past Med Surg Social Fam HX - Past Medical History Attestation: Yes The following information was validated with the patient. Source: patient, old records reviewed, obtained from family Medical history: CVA, GERD, GI bleed, hyperlipidemia, hypertension, myocardial infarction Psychiatric history: anxiety, depression - Past Surgical History Surgical History: cholecystectomy, orthopedic, other Additional surgical history: right shoulder repair - Social History Smoking Status: Never smoker Smokeless Tobacco Status: No Alcohol use: none Drug use: none Current living situation: Home, With Family Activity Level: Independent ambulation Recent Out of Country Travel Within the Last 8 Weeks: No - Family History Father Family Member Ethnicity: Non- Living Status: Hx Family Cardiac Disorders: Yes Hx Family Respiratory Disorders: Yes Hx Family Endocrine Disorder: Yes (DM) Mother Adopted: No Family Member Ethnicity: Non- Living Status: Hx Family Cardiac Disorders: Yes Hx Family Respiratory Disorders: Yes Hx Family Cancer: No Hx Family GI Disorders: No Hx Family Endocrine Disorder: No Hx Family Neuromuscular Disorders: No Hx Family Neurologic Disorders: Yes Internal Medicine - H&P: Meds Atorvastatin [Lipitor] 80 mg PO HS 04/30/15 [History] Isosorbide MONOnitrate (24 HR) [Imdur] 60 mg PO DAILY #30 tab.er.24h 05/10/15 [Rx] Fluticasone Propionate Nasal [Flonase] 100 mcg NS DAILY 10/26/15 [History] Pantoprazole Sodium 40 mg PO BID 30 Days tablet. 11/01/15 [Rx] Losartan [Cozaar] 25 mg PO DAILY 06/05/16 [History] Amitriptyline [Elavil] 50 mg PO HS 08/17/17 [History] Dicyclomine [Bentyl] 10 mg PO BID 08/17/17 [History] Aspirin [Lo-Dose Aspirin EC] 81 mg PO DAILY 12/30/17 [History] Cholecalciferol (Vitamin D3) [Vitamin D3] 400 unit PO DAILY 12/30/17 [History] DULoxetine [Cymbalta] 20 mg PO DAILY 12/30/17 [History] Donepezil HCl [Aricept] 10 mg PO HS 12/30/17 [History] Ondansetron HCl [Zofran] 4 mg PO Q6H PRN 12/30/17 [History] Vitamin B Complex Vit C No.4 [Super B Complex] 1 tab PO DAILY 12/30/17 [History] amLODIPine [Norvasc] 5 mg PO DAILY 30 Days #30 tablet 01/04/18 [Rx] Calcium Citrate 03/15/18 [History] Allergy/AdvReac Type Severity Reaction Status Date / Time No Known Allergies Allergy Verified 12/25/17 14:31 - Constitutional Constitutional: fever(s), weight loss, no chills, no night sweats - EENT Eyes: no blurry vision, no change in vision Ears: no ear pain, no tinnitus Nose, mouth and throat: no nasal congestion, no sinus pressure, no sore throat - Cardiovascular Cardiovascular ROS IM: no chest pain, no dyspnea, no edema - Respiratory Respiratory: no cough, no hemoptysis, no chest congestion, no change in phlegm color - Gastrointestinal Gastrointestinal: abdominal pain (mild epigastric), nausea, vomiting, no constipation, no diarrhea, no hematemesis, no hematochezia, no melena - Genitourinary Genitourinary: dysuria, urinary frequency, urinary hesitancy, no flank pain, no hematuria - Musculoskeletal Musculoskeletal ROS IM: no arthralgias, no back pain - Integumentary Integumentary IM: no rash, no jaundice - Neurological Neurological ROS: no disequilibrium, no dizziness, no focal weakness, no frequent falls, no headache(s) - Psychiatric Psychiatric: no anxiety, no depression - Endocrine Endocrine IM: no polydipsia, no polyuria - Allergic/Immunologic Allergic/Immunologic: GI upset with certain foods - Constitutional Vitals: Temp Pulse Resp BP Pulse Ox 98.6 F 75 20 166/78 98 03/15/18 17:09 03/15/18 19:00 03/15/18 19:00 03/15/18 19:00 03/15/18 19:00 General appearance: Present: cooperative, mild distress, A&O X 3, pleasant, answers questions appropriately Exam: mildly cachectic in appearance - Head Head exam: Present: atraumatic, normal inspection - Eye Eye exam: Present: EOMI, PERRL. Absent: scleral icterus Pupils: Present: normal accommodation - ENT ENT exam: Present: mucous membranes dry, normal exam, normal oropharynx - Neck Neck exam general surgery: Present: full ROM, supple. Absent: tenderness, nuchal rigidity, thyromegaly - Respiratory Respiratory exam: Present: CTAB. Absent: chest wall tenderness, rales, rhonchi, wheezes - Cardiovascular Cardiovascular exam: Present: RRR, +S1, +S2. Absent: diastolic murmur, systolic murmur - GI/Abdominal GI/Abdominal exam: Present: normal bowel sounds, soft, tenderness (mild epigastric -- chronic per patient). Absent: guarding, hepatomegaly, mass, splenomegaly - Extremities Exam Extremities exam: Present: normal capillary refill, warm, radial pulses palpable and symmetrical. Absent: calf tenderness, pedal edema, tenderness - Back Exam Back exam: Absent: CVA tenderness (L), CVA tenderness (R) - Neurological Exam Neurological exam: Present: alert, CN II-XII intact, oriented X3, no focal deficits, strengths equal and symetr throughout - Psychiatric Psychiatric exam: Present: normal affect, normal mood - Skin Skin exam: Present: dry, intact, warm Internal Med - H&P Results - Labs CBC & Chem 7: 03/15/18 16:40 03/15/18 16:40 Labs: Short CBC 03/15/18 Range/Units 16:40 WBC 7.2 (4.3-11.1) K/mcL Hgb 11.3 L (11.5-15.4) g/dL Hct 34.7 L (35.3-44.9) % Plt Count 330 (140-400) K/mcL Neutrophils # 4.6 (1.6-8.9) K/mcL BMP 03/15/18 16:40 Sodium 141 Potassium 4.3 Chloride 107 Carbon Dioxide 25 BUN 11 Creatinine 0.69 Glucose 94 Calcium 9.9 Cardiac Enzymes 03/15/18 Range/Units 16:40 Troponin I < 0.03 (< 0.04) ng/mL Liver Function 03/15/18 Range/Units 16:40 Total Bilirubin 0.9 (0.3-1.0) mg/dL Direct Bilirubin 0.2 (0.0-0.2) mg/dL AST 27 (13-39) Units/L ALT 67 H (7-52) Units/L Alkaline Phosphatase 220 H (34-104) Units/L Albumin 3.8 (3.5-5.7) g/dL Urine 03/15/18 Range/Units 16:52 Urine Color [place] A (Yellow) Urine Clarity Clear (Clear) Urine pH 7.0 (5.0-8.0) pH Units Ur Specific [place] < 1.005 L (1.010-1.025) Urine Protein Negative (Neg-Trace) mg/dL Urine Glucose (UA) Normal (Normal) mg/dL - Impressions ITS Impressions Abdomen/Pelvis CT 03/15/18 16:44 IMPRESSION: 1. No acute abnormality in the abdomen or pelvis. 2. Subacute to chronic nondisplaced fractures of the left pubic bone and bilateral sacral alae new from 12/25/2017. 3. 15 x 13 mm cystic lesion in the head of the pancreas mildly increased in size from 12/25/2017 and new from 12/09/2016. Further evaluation could be obtained with MRI or fine-needle aspiration. Alternatively, repeat exam in 6 months could be obtained. 4. 3.3 cm left adnexal cystic structure. Consider further evaluation with nonemergent pelvic ultrasound. 5. Status post cholecystectomy and hysterectomy. D/ / Feroz Sosa MD / Feroz Sosa MD Interpreting Provider: Feroz Sosa MD - Assessment and plan (1) Urinary tract infection Current Visit: Yes Status: Acute Assessment and plan: 1. Urine culture obtained. 2. Continue IV Rocephin and follow cultures and clinical picture. Qualifiers: Urinary tract infection type: acute cystitis Hematuria presence: without hematuria Qualified Code(s): N30.00 - Acute cystitis without hematuria (2) Weight loss, unintentional Current Visit: Yes Status: Acute Assessment and plan: 1. Consult GI regarding the pancreatic cyst. 2. Will order MRI of abdomen/pancreas. 3. May need nutritional counseling. (3) CAD (coronary artery disease) Current Visit: Yes Status: Chronic Assessment and plan: 1. No angina per history.' 2. Continue home meds as appropriate. 3. Monitor on telemetry. Qualifiers: Coronary Disease-Associated Artery/Lesion type: [place] artery [place] vs. transplanted heart: [place] heart Associated angina: without angina Qualified Code(s): I25.10 - Atherosclerotic heart disease of [place] coronary artery without angina pectoris (4) Cystic mass of pancreas Current Visit: Yes Status: Chronic Assessment and plan: 1. MRI abdomen and GI consult as above. (5) DVT prophylaxis Current Visit: Yes Status: Acute Assessment and plan: 1. Heparin SQ.
[2018-03-15] MEDS: 0.9 % Sodium Chloride 1,000 ML IVC SCH (23:28)
[2018-03-16] MEDS: *HR* Heparin 5,000 UNIT/ML VIAL SQ SCH ×2 (05:29→17:29)
[2018-03-16] MEDS: *HR* HYDROcodone/Acet 5/325 mg TABLET PO PRN ×2 (05:29→21:05)
[2018-03-16 05:32] LABS: Basophils % 0.3 %; Eosinophils # 0.1 K/mcL (0.0-0.6); Eosinophils % 1.7 %; Hematocrit 32.3 % (35.3-44.9); Hemoglobin 10.3 g/dL (11.5-15.4); Immature Granulocytes % 0.3 % (0-4); Lymphocytes # 1.7 K/mcL (0.6-4.6); Lymphocytes % 24.3 %; Mean Corpuscular HGB Conc 31.9 g/dL (31.6-35.5); Mean Corpuscular Hemoglobin 31.7 pg (28.0-33.3); Mean Corpuscular Volume 99.4 fL (83.0-100.0); Mean Platelet Volume 9.6 fL (9.4-12.4); Monocytes # 0.7 K/mcL (0.0-1.3); Monocytes % 10.1 %; Neutrophils # 4.5 K/mcL (1.6-8.9); Platelet Count 274 K/mcL (140-400); Red Blood Count 3.25 M/mcL (3.82-4.97); Red Cell Distribution Width 14.4 % (11.5-14.5); Segmented Neutrophils % 63.3 %
[2018-03-16 05:38] LABS: Prothrombin Time 11.7 Seconds (9.4-12.1)
[2018-03-16 05:40] LABS: Activated Partial Thrombo Time 29.9 Seconds (26.0-36.0)
[2018-03-16 05:50] LABS: Alanine Aminotransferase 50 Units/L (7-52); Albumin 3.3 g/dL (3.5-5.7); Albumin/Globulin Ratio 1.5 (1.1-2.2); Alkaline Phosphatase 185 Units/L (34-104); Aspartate Amino Transferase 22 Units/L (13-39); BUN/Creatinine Ratio 20 (6-26); Bilirubin,Direct 0.1 mg/dL (0.0-0.2); Bilirubin,Indirect 0.5 mg/dL (0.0-1.2); Bilirubin,Total 0.6 mg/dL (0.3-1.0); Blood Urea Nitrogen 14 mg/dL (8-23); Calcium 8.8 mg/dL (8.6-10.3); Carbon Dioxide 25 mEq/L (23-29); Chloride 111 mEq/L (98-107); Globulin 2.2 g/dL (2.4-3.5); Glucose 113 mg/dL (70-105); Osmolality,Calculated 293 (280-300); Potassium 3.9 mEq/L (3.5-5.1); Sodium 141 mEq/L (136-145); Total Protein 5.5 g/dL (6.4-8.9); eGFR For Non-African Americans > 60 (> 60)
[2018-03-16] MEDS: 0.9 % Sodium Chloride 1,000 ML IVC SCH (08:52)
[2018-03-16] MEDS: amLODIPine 5 MG TABLET PO SCH (08:53)
[2018-03-16] MEDS: Isosorbide MONOnitrate (24 HR) 60 MG TAB.ER.24H PO SCH (08:53)
[2018-03-16] MEDS: Aspirin Enteric Coated 81 MG Tablet PO SCH (08:53)
[2018-03-16] MEDS: cefTRIAXone 1,000 MG in Water for inj. (sterile) 20 ML 10 ML IVP SCH (08:54)
--- NOTE | 2018-03-16 11:19 | Gastroenterology Consult Note ---
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 MRCP 06/09/2017 with stable 11 x 9 mm cystic lesion in the head of the pancreas likely communicate with a side branch pancreatic duct suggesting a side branch pancreatic IPMN. On admission, CT A/P with 15 x 13 mm cystic lesion in the head of the pancreas mildly increased from 12/25/2017. TB 0.9, AST 27, ALT 67, and alk phos 220. Today, TB 0.6, AST 22, ALT 50, alk phos 185. MRCP has been ordered. Check CA 19-9 and CEA. Consider outpatient EUS. (2) Abdominal pain Current Visit: No Status: Acute Assessment and plan: Continue PPI. EGD today to r/o esophagitis, gastritis, duodenitis, PUD, MW tear, or AVM. Keep patient NPO. Qualifiers: Abdominal location: epigastric Qualified Code(s): R10.13 - Epigastric pain - Time Spent With Patient Total time spent is greater than 50% in coordination of care (as documented) at patient's floor/unit and/or counseling patient: GI History of Present Illness - Data of Consult Patient: known to practice within the last 3 years Consult date: 03/16/18 Requesting Physician: Jaylyn Kelsey - Consult Narrative Reason for consult: Pancreatic cyst History of present illness: Ms. Thomas is a 82 year old female with PMHx of CVA, GERD, GI bleed, HLD, HTN, MT, and cholecystectomy presented to the ED with several week history of persistent UTI with worsening nausea, vomiting, and unintentional weight loss. She has been on 3 different antibiotics without relief. She therefore came to the ER for evaluation. Workup confirmed suspicion for UTI. CT A/P with 15 x 13 mm cystic lesion in the head of the pancreas mildly increased from 12/25/2017. 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 MRCP 06/09/2017 with stable 11 x 9 mm cystic lesion in the head of the pancreas likely communicate with a side branch pancreatic duct suggesting a side branch pancreatic IPMN. On admission TB 0.9, AST 27, ALT 67, and alk phos 220. She does complain of heart burn that has been worsening. She is taking Tums which is not controlling her symptoms. Procedures: EGD 12/13/2016 Dr. Abreu: Gastritis, diverticulum periampullary in second part of duodenum. EGD 10/31/2015 Dr. Abreu: Normal esophagus, gastritis Colonoscopy 05/10/2015 Dr. Abreu: Diverticulosis EGD 05/09/2015 Dr. Abreu: Gastritis, small hiatus hernia NSAIDs: ASA Anticoagulation: None Past Med Surg Social Fam HX - Past Medical History Medical history: CVA, GERD, GI bleed, hyperlipidemia, hypertension, myocardial infarction Psychiatric history: anxiety, depression - Past Surgical History Surgical History: cholecystectomy, orthopedic, other Additional surgical history: right shoulder repair - Social History Smoking Status: Never smoker Smokeless Tobacco Status: No Alcohol use: none Drug use: none - Family History Father Family Member Ethnicity: Non- Living Status: Hx Family Cardiac Disorders: Yes Hx Family Respiratory Disorders: Yes Hx Family Endocrine Disorder: Yes (DM) Mother Adopted: No Family Member Ethnicity: Non- Living Status: Hx Family Cardiac Disorders: Yes Hx Family Respiratory Disorders: Yes Hx Family Cancer: No Hx Family GI Disorders: No Hx Family Endocrine Disorder: No Hx Family Neuromuscular Disorders: No Hx Family Neurologic Disorders: Yes - Gastrointestinal Gastrointestinal: Present: as per HPI - Constitutional Constitutional: as per HPI - EENT Eyes: as per HPI Ears: Present: as per HPI Nose, mouth and throat: Present: as per HPI - Cardiovascular Cardiovascular ROS: Present: as per HPI - Respiratory Respiratory IM: Present: as per HPI - Genitourinary Genitourinary: Absent: change in color, Urinary frequency - Neurological ROS Neurological GI: Present: as per HPI - Hematologic/Lymphatic Hematologic/Lymphatic pediatric: Present: as per HPI - Musculoskeletal Musculoskeletal ROS GI: Present: as per HPI - Integumentary Integumentary GI: Present: as per HPI - Psychiatric ROS Psychiatric GI: Present: as per HPI - Endocrine Endocrine IM: Present: as per HPI - Constitutional Vitals: Temp Pulse Resp BP Pulse Ox 98.6 F 77 18 124/66 94 03/16/18 10:11 03/16/18 10:11 03/16/18 10:11 03/16/18 10:11 03/16/18 10:11 General appearance: Present: cooperative, A&O X 3, no acute distress, answers questions appropriately - Head Head exam: Present: atraumatic, normocephalic - Eye Eye exam: Present: normal appearance, sclera anicteric - ENT ENT exam: Present: mucous membranes dry - Neck Neck exam general surgery: Present: normal inspection, trachea midline - Respiratory Respiratory exam: Present: CTAB. Absent: rales, rhonchi - Cardiovascular Cardiovascular exam: Present: RRR, +S1, +S2 - GI/Abdominal GI/Abdominal exam: Present: soft, tenderness (RUQ/epigastric), no peritoneal signs. Absent: distended, firm, guarding - Rectal Rectal exam: Present: deferred - Extremities Exam Extremities exam: Present: warm - Neurological Exam Neurological exam: Present: no focal deficits - Psychiatric Psychiatric exam: Present: normal affect, normal mood - Skin Skin exam: Present: dry, intact, normal color, warm Results - Labs CBC & Chem 7: 03/16/18 05:14 03/16/18 05:14 Labs: Last Result Calcium 8.8 mg/dL (8.6-10.3) 03/16/18 05:14 Troponin I < 0.03 ng/mL (< 0.04) 03/15/18 16:40 Entire Visit Hgb 10.3 g/dL (11.5-15.4) L 03/16/18 05:14 Hct 32.3 % (35.3-44.9) L 03/16/18 05:14 PT 11.7 Seconds (9.4-12.1) 03/16/18 05:14 Total Bilirubin 0.6 mg/dL (0.3-1.0) 03/16/18 05:14 AST 22 Units/L (13-39) 03/16/18 05:14 ALT 50 Units/L (7-52) 03/16/18 05:14 Lipase 66 Units/L (11-82) 03/15/18 16:40 CA 125 Ag Serial Mntr 11 U/mL (Less than 35) 03/16/18 08:37 - ABG ABG results: PT/INR, D-dimer PT 11.7 Seconds (9.4-12.1) 03/16/18 05:14 - Impressions Impressions Abdomen/Pelvis CT 03/15/18 16:44 IMPRESSION: 1. No acute abnormality in the abdomen or pelvis. 2. Subacute to chronic nondisplaced fractures of the left pubic bone and bilateral sacral alae new from 12/25/2017. 3. 15 x 13 mm cystic lesion in the head of the pancreas mildly increased in size from 12/25/2017 and new from 12/09/2016. Further evaluation could be obtained with MRI or fine-needle aspiration. Alternatively, repeat exam in 6 months could be obtained. 4. 3.3 cm left adnexal cystic structure. Consider further evaluation with nonemergent pelvic ultrasound. 5. Status post cholecystectomy and hysterectomy. D/ / Feroz Sosa MD / Feroz Sosa MD Interpreting Provider: Feroz Sosa MD Liver Ultrasound 03/15/18 19:27 IMPRESSION: 1. No acute abnormality identified in the right upper quadrant. 2. 2 cm cystic lesion apparently within the head of the pancreas. Consider further evaluation with MRI or fine-needle aspiration. Alternatively, repeat CT in 6 months could be obtained. D/ / Feroz Sosa MD / Feroz Sosa MD Interpreting Provider: Feroz Sosa MD Consult Discharge Plan - Plan
--- NOTE | 2018-03-16 12:01 | Internal Med Progress Note ---
Hospitalist Progress Note - Encounter Date of Encounter: 03/16/18 Time of Encounter: 11:58 - Subjective Interval History: She still complains of abdominal pain. But she denies fever, nausea, vomiting, or diarrhea. She also reported unintentional weight loss recently. - Exam Vitals: Temp Pulse Resp BP Pulse Ox 98.6 F 77 18 124/66 94 03/16/18 10:11 03/16/18 10:11 03/16/18 10:11 03/16/18 10:11 03/16/18 10:11 Exam: PHYSICAL EXAMINATION: GENERAL APPEARANCE: The patient is alert, oriented and in no acute distress. HEENT: Head is normocephalic. The sinuses are nontender. Pupils are equal and reactive. The nares are patent. Oropharynx clear without lesions. NECK: Supple without lymphadenopathy. HEART: Regular rate and rhythm. LUNGS: No crackles or wheezes are heard. ABDOMEN: Soft, nontender, nondistended with good bowel sounds heard. Inguinal area is normal. EXTREMITIES: Without cyanosis, clubbing or edema. NEUROLOGICAL: Gross nonfocal. SKIN: Warm and dry without any rash. - Assessment and Plan (1) Urinary tract infection Current Visit: Yes Status: Acute Assessment and Plan: 1. Urine culture obtained. 2. Continue IV Rocephin and follow cultures and clinical picture. (2) Cystic mass of pancreas Current Visit: Yes Status: Chronic Assessment and Plan: Patient had a history of pancreatic IPMN, she is well-known knowing to GI service, GI recommended follow-up with imaging study in 6 months, also consider EUS with biopsy. Pending tumor marker tests. Appreciate help. (3) Weight loss, unintentional Current Visit: Yes Status: Acute Assessment and Plan: GI consult, EGD planned today. (4) DVT prophylaxis Current Visit: Yes Status: Acute Assessment and Plan: 1. Heparin SQ. (5) CAD (coronary artery disease) Current Visit: Yes Status: Chronic Assessment and Plan: 1. No angina per history.' 2. Continue home meds as appropriate. 3. Monitor on telemetry. - Time Spent with Patient Total time spent is greater than 50% in coordination of care (as documented) at patient's floor/unit and/or counseling patient: Greater than 35 minutes Plan of Care Discussed with: patient Internal Medicine: Result - Labs CBC & Chem 7: 03/16/18 05:14 03/16/18 05:14 Labs: Short CBC 03/15/18 03/16/18 Range/Units 16:40 05:14 WBC 7.2 7.1 (4.3-11.1) K/mcL Hgb 11.3 L 10.3 L (11.5-15.4) g/dL Hct 34.7 L 32.3 L (35.3-44.9) % Plt Count 330 274 (140-400) K/mcL Neutrophils # 4.6 4.5 (1.6-8.9) K/mcL BMP 03/15/18 03/16/18 16:40 05:14 Sodium 141 141 Potassium 4.3 3.9 Chloride 107 111 H Carbon Dioxide 25 25 BUN 11 14 Creatinine 0.69 0.70 Glucose 94 113 H Calcium 9.9 8.8 Cardiac Enzymes 03/15/18 Range/Units 16:40 Troponin I < 0.03 (< 0.04) ng/mL Liver Function 03/15/18 03/16/18 Range/Units 16:40 05:14 Total Bilirubin 0.9 0.6 (0.3-1.0) mg/dL Direct Bilirubin 0.2 0.1 (0.0-0.2) mg/dL AST 27 22 (13-39) Units/L ALT 67 H 50 (7-52) Units/L Alkaline Phosphatase 220 H 185 H (34-104) Units/L Albumin 3.8 3.3 L (3.5-5.7) g/dL Urine 03/15/18 Range/Units 16:52 Urine Color [place] A (Yellow) Urine Clarity Clear (Clear) Urine pH 7.0 (5.0-8.0) pH Units Ur Specific [place] < 1.005 L (1.010-1.025) Urine Protein Negative (Neg-Trace) mg/dL Urine Glucose (UA) Normal (Normal) mg/dL - ABG Interpretation ABG results: PT/INR, D-dimer PT 11.7 Seconds (9.4-12.1) 03/16/18 05:14 - Impressions Impressions Abdomen/Pelvis CT 03/15/18 16:44 IMPRESSION: 1. No acute abnormality in the abdomen or pelvis. 2. Subacute to chronic nondisplaced fractures of the left pubic bone and bilateral sacral alae new from 12/25/2017. 3. 15 x 13 mm cystic lesion in the head of the pancreas mildly increased in size from 12/25/2017 and new from 12/09/2016. Further evaluation could be obtained with MRI or fine-needle aspiration. Alternatively, repeat exam in 6 months could be obtained. 4. 3.3 cm left adnexal cystic structure. Consider further evaluation with nonemergent pelvic ultrasound. 5. Status post cholecystectomy and hysterectomy. D/ / Feroz Sosa MD / Feroz Sosa MD Interpreting Provider: Feroz Sosa MD Liver Ultrasound 03/15/18 19:27 IMPRESSION: 1. No acute abnormality identified in the right upper quadrant. 2. 2 cm cystic lesion apparently within the head of the pancreas. Consider further evaluation with MRI or fine-needle aspiration. Alternatively, repeat CT in 6 months could be obtained. D/ / Feroz Sosa MD / Feroz Sosa MD Interpreting Provider: Feroz Sosa MD Consult Discharge Plan - Plan Referrals: Ruperto Kennedy MD [Primary Care Provider] - (1) Urinary tract infection Qualifiers: Urinary tract infection type: acute cystitis Hematuria presence: without hematuria Qualified Code(s): N30.00 - Acute cystitis without hematuria (5) CAD (coronary artery disease) Qualifiers: Coronary Disease-Associated Artery/Lesion type: [place] artery [place] vs. transplanted heart: [place] heart Associated angina: without angina Qualified Code(s): I25.10 - Atherosclerotic heart disease of [place] coronary artery without angina pectoris
[2018-03-16] MEDS ORDERED: Lidocaine -MPF 2% 2 ML VIAL ONE (13:52)
[2018-03-16] MEDS ORDERED: *HR* Propofol 200 MG/20 ML VIAL IVP ONE (13:52)
--- NOTE | 2018-03-16 13:57 | Anesthesia Evaluation PreOp ---
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 11/01/15 [Rx] Losartan [Cozaar] 25 mg PO DAILY 06/05/16 [History] Amitriptyline [Elavil] 50 mg PO HS 08/17/17 [History] Dicyclomine [Bentyl] 10 mg PO BID 08/17/17 [History] Aspirin [Lo-Dose Aspirin EC] 81 mg PO DAILY 12/30/17 [History] Cholecalciferol (Vitamin D3) [Vitamin D3] 400 unit PO DAILY 12/30/17 [History] DULoxetine [Cymbalta] 20 mg PO DAILY 12/30/17 [History] Donepezil HCl [Aricept] 10 mg PO HS 12/30/17 [History] Ondansetron HCl [Zofran] 4 mg PO Q6H PRN 12/30/17 [History] Vitamin B Complex Vit C No.4 [Super B Complex] 1 tab PO DAILY 12/30/17 [History] amLODIPine [Norvasc] 5 mg PO DAILY 30 Days #30 tablet 01/04/18 [Rx] Calcium Citrate 03/15/18 [History] Allergy/AdvReac Type Severity Reaction Status Date / Time No Known Allergies Allergy Verified 12/25/17 14:31 - Meds/Allergy Pre-op Review Medications Reviewed: Yes Allergies Reviewed: Yes Beta Blockers on Current Med List: No Anesthesia Results - Labs 03/16/18 05:14 03/16/18 05:14 - Imaging EKG: report reviewed, image reviewed (SR) Additional studies: TTE: Impressions: LVEF 60-65%. Mild left ventricular diastolic dysfunction. Normal RV size and function. Mild mitral regurgitation. Mild-moderate aortic regurgitation. No pulmonary hypertension. No PFO with saline contrast injection. Anesthesia Exam Last Vital Signs Temp 98.6 F 03/16/18 13:40 Pulse 75 03/16/18 13:40 Resp 18 03/16/18 13:40 BP 160/83 03/16/18 13:40 Pulse Ox 95 03/16/18 13:40 Weight: 42 kg NPO (# of Hours): > 8 hrs - HEENT Pupil (Motor): Pupils equal, EOMI Mallampati: III Teeth: Edentulous, Prosthesis Denture Type: Upper: Complete Oral Opening: Greater than 3 - DISPENSARY TECHNICIAN LOC: Oriented - Cardiac Rhythm: Regular Murmur: None - Pulmonary Breath Sounds: bilateral Clear Respiratory Effort: Symmetrical Anesthesia Assess/Plan ASA Score: 3 Level of consciousness: Cooperative Anesthetic Plan: MAC Monitoring Plan: Standard Monitors Recovery Plan: PACU
[2018-03-16 14:09] LABS: Carcinoembryonic Antigen 3.5 ng/mL (Less than 5.0)
--- NOTE | 2018-03-16 14:39 | Anesthesia Evaluation Post Op ---
Date of Encounter: 03/16/18 Time of Encounter: 14:30 - Vital Signs Vital Signs: BP 136/78 HR 69 RR 16 SpO2 95% - Lungs Lungs: Clear Ascult./Percussion - Airway Airway: Non-obstructed - Cardiovascular Regular Rate - Mental Status Mental Status: Alert & Oriented, Answers Appropriately - Pain Pain Scale: 0 Pain Scale used: Numeric (1 - 10) - Nausea Vomiting Nausea Vomiting: Not Present - Hydration Hydration: Ice chips Notes: 03/16/18 14:39 Pt has fully recovered from anesthesia. VSS. A/O. Neuro exam intact. - Discharge PostOp Status: Transfer Patient to floor
[2018-03-16] MEDS: Fluticasone Propionate Nasal 50 MCG/SPRAY BOTTLE NS SCH (19:35)
[2018-03-17 05:43] LABS: Basophils % 0.6 %; Eosinophils # 0.1 K/mcL (0.0-0.6); Eosinophils % 2.6 %; Hematocrit 29.5 % (35.3-44.9); Hemoglobin 9.2 g/dL (11.5-15.4); Immature Granulocytes % 0.2 % (0-4); Lymphocytes # 1.5 K/mcL (0.6-4.6); Lymphocytes % 27.8 %; Mean Corpuscular HGB Conc 31.2 g/dL (31.6-35.5); Mean Corpuscular Hemoglobin 31.3 pg (28.0-33.3); Mean Corpuscular Volume 100.3 fL (83.0-100.0); Mean Platelet Volume 9.8 fL (9.4-12.4); Monocytes # 0.4 K/mcL (0.0-1.3); Monocytes % 7.6 %; Neutrophils # 3.3 K/mcL (1.6-8.9); Platelet Count 267 K/mcL (140-400); Red Blood Count 2.94 M/mcL (3.82-4.97); Segmented Neutrophils % 61.2 %
[2018-03-17] MEDS: *HR* Heparin 5,000 UNIT/ML VIAL SQ SCH (05:49)
[2018-03-17 06:07] LABS: BUN/Creatinine Ratio 19 (6-26); Blood Urea Nitrogen 11 mg/dL (8-23); Carbon Dioxide 25 mEq/L (23-29); Chloride 110 mEq/L (98-107); Glucose 98 mg/dL (70-105); Osmolality,Calculated 291 (280-300); Potassium 3.8 mEq/L (3.5-5.1); Sodium 141 mEq/L (136-145); eGFR For Non-African Americans > 60 (> 60)
--- NOTE | 2018-03-17 08:22 | Electrocardiograph Report ---
[place] [id number] Test Date: 2018-03-15 Pat Name: Kimberly Thomas Department: [id number] Room: 3A56 Gender: F Post Manager: : [id number] Requested By: Torsten Robles Order Number: [id number] Reading MD: Feroz Wu Measurements Intervals [place] Rate: 71 P: 69 IA: 177 QRS: -30 QRSD: 92 T: 72 QT: 394 QTc: 429 Interpretive Statements Sinus rhythm Left axis deviation nonspecific ST and T-wave changes Electronically Signed On 03-17-2018 8:21:04 EST by Feroz Wu
[2018-03-17] MEDS: *HR* HYDROcodone/Acet 5/325 mg TABLET PO PRN (08:29)
[2018-03-17] MEDS: Isosorbide MONOnitrate (24 HR) 60 MG TAB.ER.24H PO SCH (08:29)
[2018-03-17] MEDS: amLODIPine 5 MG TABLET PO SCH (08:29)
[2018-03-17] MEDS: Aspirin Enteric Coated 81 MG Tablet PO SCH (08:30)
[2018-03-17] MEDS: cefTRIAXone 1,000 MG in Water for inj. (sterile) 20 ML 10 ML IVP SCH (08:30)
[2018-03-17] MEDS: Fluticasone Propionate Nasal 50 MCG/SPRAY BOTTLE NS SCH (08:38)
[2018-03-17 10:16] VITALS: BP 119/61
--- NOTE | 2018-03-17 14:03 | Discharge Summary ---
- NOTES TO OUTPATIENT PROVIDER Notes to Outpatient Provider: f/u with PCP within a week. f/u with GI within 2 weeks. Orders not resulted at time of discharge: Pending orders 03/15/18 17:04 Culture,Blood [BC] Stat 03/16/18 08:37 Cancer Antigen-GI (CA 19-9) Routine 03/16/18 14:12 Surgical Pathology [PTH] Routine Date of Encounter: 03/17/18 Time of Encounter: 13:59 - Discharge Diagnosis (1) Urinary tract infection Priority: Primary Status: Acute Qualifiers: Urinary tract infection type: acute cystitis Hematuria presence: without hematuria Qualified Code(s): N30.00 - Acute cystitis without hematuria (2) Cystic mass of pancreas Priority: Secondary Status: Chronic (3) Weight loss, unintentional Priority: Primary Status: Acute (4) DVT prophylaxis Priority: Primary Status: Acute (5) CAD (coronary artery disease) Priority: Secondary Status: Chronic Qualifiers: Coronary Disease-Associated Artery/Lesion type: [place] artery [place] vs. transplanted heart: [place] heart Associated angina: without angina Qualified Code(s): I25.10 - Atherosclerotic heart disease of [place] coronary artery wit hout angina pectoris Hospital course: Ms. Thomas is a 82 year old female who presents to the ER tonight after several week history of persistent UTI with worsening nausea, vomiting, and unintentional weight loss. She has been on 3 different antibiotics without relief. She therefore came to the ER for evaluation. Workup confirmed suspicion for UTI. However, she underwent CT scan of abdomen and pelvis, which revealed a cystic lesion in her pancreas. She was therefore admitted to the hospitalist service. She suffers from chronic GI upset and has been followed by gastroenterology regarding the pancreatic head cyst. Her last MRI imaging was in May of this year which document stability of the cyst. However, CT scan upon admission suggests possible enlargement. She has had some unintentional weight loss of about 5 pounds in the last few months. GI was consulted and she underwent EGD on 03/16, which revealed nonbleeding esophageal ulcer, and atrophic gastritis. Repeat MRCP redemonstrated pancreatic cyst, possible IPMN. Patient UTI has been adequately treated with IV Rocephin for 3 doses, which was changed to oral antibiotics prior to discharge. Patient was instructed to continue follow-up with GI for EGD biopsy results, and the pancreatic head cystic lesion. She is discharged home today with oral Omnicef for 7 more days. Discharge discussed with: patient Time spent discussing smoking cessation with patient: more than 10 minutes - Time Spent with Patient Total time spent providing and/or coordinating discharge services: Greater than 30 minutes - Discharge Medications Prescriptions: Cefdinir [Omnicef] 300 mg PO BID #14 capsule Home Medications: Atorvastatin [Lipitor] 80 mg PO HS 04/30/15 [History] Isosorbide MONOnitrate (24 HR) [Imdur] 60 mg PO DAILY #30 tab.er.24h 05/10/15 [Rx] Fluticasone Propionate Nasal [Flonase] 100 mcg NS DAILY 10/26/15 [History] Pantoprazole Sodium 40 mg PO BID 30 Days tablet. 11/01/15 [Rx] Losartan [Cozaar] 25 mg PO DAILY 06/05/16 [History] Amitriptyline [Elavil] 50 mg PO HS 08/17/17 [History] Dicyclomine [Bentyl] 10 mg PO BID 08/17/17 [History] Aspirin [Lo-Dose Aspirin EC] 81 mg PO DAILY 12/30/17 [History] Cholecalciferol (Vitamin D3) [Vitamin D3] 400 unit PO DAILY 12/30/17 [History] DULoxetine [Cymbalta] 20 mg PO DAILY 12/30/17 [History] Donepezil HCl [Aricept] 10 mg PO HS 12/30/17 [History] Ondansetron HCl [Zofran] 4 mg PO Q6H PRN 12/30/17 [History] Vitamin B Complex Vit C No.4 [Super B Complex] 1 tab PO DAILY 12/30/17 [History] amLODIPine [Norvasc] 5 mg PO DAILY 30 Days #30 tablet 01/04/18 [Rx] LORazepam [Ativan] 0.5 mg PO DAILY 03/16/18 [History] Cefdinir [Omnicef] 300 mg PO BID #14 capsule 03/17/18 [Rx] Allergies/Adverse Reactions: Allergy/AdvReac Type Severity Reaction Status Date / Time No Known Allergies Allergy Verified 12/25/17 14:31 Date of admission: 03/15/18 20:01 Primary care physician: Ruperto Kennedy MD Consults: 03/15/18 21:19 Consult to Gastroenterology [CONS] Routine Consulting Provider: Priteshology Kelsey Reason for Consult: pancreatic cyst; LFT's elevated Call Completed: No Anticipated date of discharge: 03/17/18 - Constitutional Vitals: Temp Pulse Resp BP Pulse Ox 99.1 F 71 15 119/61 95 03/17/18 10:08 03/17/18 10:08 03/17/18 10:08 03/17/18 10:08 03/17/18 10:08 General appearance: Present: cooperative, mild distress, A&O X 3, pleasant, answers questions appropriately Exam: PHYSICAL EXAMINATION: GENERAL APPEARANCE: The patient is alert, oriented and in no acute distress. HEENT: Head is normocephalic. The sinuses are nontender. Pupils are equal and reactive. The nares are patent. Oropharynx clear without lesions. NECK: Supple without lymphadenopathy. HEART: Regular rate and rhythm. LUNGS: No crackles or wheezes are heard. ABDOMEN: Soft, nontender, nondistended with good bowel sounds heard. Inguinal area is normal. EXTREMITIES: Without cyanosis, clubbing or edema. NEUROLOGICAL: Gross nonfocal. SKIN: Warm and dry without any rash. - Patient Status Disposition: Home, Self-Care Condition: Good Functional capacity at discharge: independent ambulation Overall status at discharge: patient is progressing back to baseline - Discharge Instructions Follow Up With: Ruperto Kennedy MD [Primary Care Provider] - Forms: ED Satisfaction Letter - Diet and Activity Activity: increase activity as tolerated Diet: advance to your usual diet
== END 2018-03-17 18:45 | disposition home or self-care (01) ==
LOC: EMEROOARM 16:23 → 3ANU 16:23
PROVIDERS: ADMIT Internal Medicine; ATTEND Internal Medicine

== ENCOUNTER 2019-03-12 14:06 | Inpatient (IN) ==
[2019-03-12] MEDS ORDERED: Morphine Sulfate 2 MG/ML SYRINGE IVP ONE (14:14)
[2019-03-12 14:58] LABS: Prothrombin Time 11.1 Seconds (9.4-12.1)
[2019-03-12 15:01] LABS: Activated Partial Thrombo Time 26.2 Seconds (26.0-36.0)
[2019-03-12 15:16] LABS: BUN/Creatinine Ratio 17 (6-26); Blood Urea Nitrogen 23 mg/dL (8-23); Calcium 9.2 mg/dL (8.6-10.3); Carbon Dioxide 25 mEq/L (23-29); Chloride 105 mEq/L (98-107); Glucose 145 mg/dL (70-105); Osmolality,Calculated 292 (280-300); Potassium 4.4 mEq/L (3.5-5.1); Sodium 138 mEq/L (136-145); eGFR For African Americans 44 (> 60); eGFR For Non-African Americans 36 (> 60)
[2019-03-12] MEDS ORDERED: *HR* HYDROmorphone (PF) 1 MG/ML SYRINGE IVP ONE (15:24)
[2019-03-12 15:31] LABS: Basophils % 0.2 %; Eosinophils # 0.1 K/mcL (0.0-0.6); Eosinophils % 1.4 %; Hematocrit 30.2 % (35.3-44.9); Hemoglobin 10.1 g/dL (11.5-15.4); Immature Granulocytes % 0.6 % (0-4); Lymphocytes % 12.4 %; Mean Corpuscular HGB Conc 33.4 g/dL (31.6-35.5); Mean Corpuscular Hemoglobin 37.1 pg (28.0-33.3); Mean Platelet Volume 9.4 fL (9.4-12.4); Monocytes # 0.6 K/mcL (0.0-1.3); Monocytes % 7.7 %; Neutrophils # 6.3 K/mcL (1.6-8.9); Platelet Count 182 K/mcL (140-400); Red Blood Count 2.72 M/mcL (3.82-4.97); Red Cell Distribution Width 14.6 % (11.5-14.5); Segmented Neutrophils % 77.7 %; White Blood Count 8.1 K/mcL (4.3-11.1)
[2019-03-12 15:46] LABS: Anisocytosis 1+ (Not Present); Macrocytosis Present (Not Present)
[2019-03-12 15:47] LABS: Platelet Estimate Normal (Normal)
[2019-03-12 16:48] LABS: Troponin I < 0.03 ng/mL (< 0.04)
[2019-03-12] MEDS ORDERED: *HR* HYDROmorphone (PF) 1 MG/ML SYRINGE IVP PRN (17:58)
[2019-03-12] MEDS ORDERED: Naloxone 0.4 MG/ML INJ IVP PRN (18:40)
[2019-03-12] MEDS ORDERED: Ondansetron 4 MG/2 ML VIAL IVP PRN (18:40)
[2019-03-12] MEDS ORDERED: Ondansetron ODT 4 MG TAB.RAPDIS SL PRN (18:40)
[2019-03-12] MEDS ORDERED: amLODIPine 5 MG TABLET PO SCH (19:38)
[2019-03-12] MEDS: *HR* OxyCODONE Immed Rel 5 MG TABLET PO PRN ×2 (19:44→23:50)
[2019-03-13] MEDS: *HR* OxyCODONE Immed Rel 5 MG TABLET PO PRN ×3 (05:18→22:16)
[2019-03-13] MEDS ORDERED: *HR* FentaNYL (PF) 100 MCG/2 ML VIAL ONE (07:46)
[2019-03-13] MEDS ORDERED: Dexamethasone 4 MG/ML VIAL ONE (07:46)
[2019-03-13] MEDS ORDERED: Ondansetron 4 MG/2 ML VIAL ONE (07:46)
[2019-03-13] MEDS ORDERED: Lidocaine -MPF 2% 2 ML VIAL ONE (07:46)
[2019-03-13] MEDS ORDERED: *HR* Propofol 200 MG/20 ML VIAL IVP ONE (07:47)
[2019-03-13] MEDS ORDERED: CeFAZolin Syr 2,000MG/20 ML 2,000 MG/20 ML SYRINGE IVPB ONE (07:50)
[2019-03-13] MEDS ORDERED: *HR* HYDROmorphone (PF) 1 MG/ML SYRINGE IVP PRN (07:55)
[2019-03-13] MEDS ORDERED: *HR* PHENYLEPHRINE 1,000 MCG/10 ML SYRINGE IVP ONE (07:55)
[2019-03-13] MEDS: Morphine Sulfate 2 MG/ML SYRINGE IVP PRN ×2 (08:54→08:59)
[2019-03-13] MEDS ORDERED: Ondansetron 4 MG/2 ML VIAL IVP PRN (09:28)
[2019-03-13] MEDS ORDERED: *HR* OxyCODONE/APAP 5/325 TABLET PO PRN (09:28)
[2019-03-13] MEDS ORDERED: Naloxone 0.4 MG/ML INJ IVP PRN (09:28)
[2019-03-13] MEDS ORDERED: NON-FORMULARY MEDICATION 1 EACH EACH (Ondansetron Hcl [Zofran] 4 MG) PO PRN (16:09)
[2019-03-13] MEDS ORDERED: *HR* LORazepam 0.5 MG TABLET PO PRN (16:09)
[2019-03-13] MEDS ORDERED: Fluconazole 100 MG TABLET PO SCH (16:15)
[2019-03-14] MEDS: *HR* OxyCODONE Immed Rel 5 MG TABLET PO PRN ×3 (02:19→14:08)
[2019-03-14] MEDS: traMADol 50 MG TABLET PO PRN ×2 (03:42→11:16)
[2019-03-14] MEDS ORDERED: *HR* Enoxaparin 40 MG/0.4 ML SYRINGE SQ SCH (06:00)
[2019-03-14] MEDS: Cholecalciferol (D-3) 1,000 UNIT (25MCG) TABLET PO SCH (08:10)
[2019-03-14] MEDS: Aspirin Enteric Coated 81 MG Tablet PO SCH (08:10)
[2019-03-14] MEDS: Isosorbide MONOnitrate (24 HR) 60 MG TAB.ER.24H PO SCH (08:10)
[2019-03-14] MEDS: amLODIPine 5 MG TABLET PO SCH (08:10)
[2019-03-14] MEDS: *HR* HYDROcodone/Acet 5/325 mg TABLET PO PRN ×2 (12:23→19:47)
[2019-03-14] MEDS: Fluconazole 100 MG TABLET PO SCH (21:54)
[2019-03-15 04:10] LABS: Hematocrit 21.8 % (35.3-44.9); Mean Corpuscular HGB Conc 32.1 g/dL (31.6-35.5); Mean Corpuscular Volume 115.3 fL (83.0-100.0); Mean Platelet Volume 9.9 fL (9.4-12.4); Platelet Count 121 K/mcL (140-400); Red Blood Count 1.89 M/mcL (3.82-4.97); Red Cell Distribution Width 13.5 % (11.5-14.5); White Blood Count 8.4 K/mcL (4.3-11.1)
[2019-03-15 04:29] LABS: BUN/Creatinine Ratio 33 (6-26); Blood Urea Nitrogen 30 mg/dL (8-23); Calcium 8.5 mg/dL (8.6-10.3); Carbon Dioxide 27 mEq/L (23-29); Chloride 103 mEq/L (98-107); Glucose 130 mg/dL (70-105); Osmolality,Calculated 286 (280-300); Potassium 4.8 mEq/L (3.5-5.1); Sodium 134 mEq/L (136-145); eGFR For African Americans > 60 (> 60); eGFR For Non-African Americans 59 (> 60)
[2019-03-15] MEDS: *HR* Enoxaparin 30 MG/0.3 ML SYRINGE SQ SCH (06:45)
[2019-03-15] MEDS: *HR* OxyCODONE Immed Rel 5 MG TABLET PO PRN ×3 (06:45→23:21)
[2019-03-15] MEDS ORDERED: Furosemide 20 MG/2 ML VIAL IVP ONE (06:49)
[2019-03-15] MEDS ORDERED: 0.9 % Sodium Chloride 250 ML IVC SCH (07:00)
[2019-03-15] MEDS: Aspirin Enteric Coated 81 MG Tablet PO SCH (08:35)
[2019-03-15] MEDS: Isosorbide MONOnitrate (24 HR) 60 MG TAB.ER.24H PO SCH (08:35)
[2019-03-15] MEDS: Fluconazole 100 MG TABLET PO SCH (08:35)
[2019-03-15] MEDS: Cholecalciferol (D-3) 1,000 UNIT (25MCG) TABLET PO SCH (08:36)
[2019-03-15] MEDS: amLODIPine 5 MG TABLET PO SCH (08:42)
[2019-03-15] MEDS: Iron Sucrose Complex 400 MG in 0.9 % Sodium Chloride 250 ML IVPB SCH (11:00)
[2019-03-15 19:10] LABS: Basophils % 0.1 %; Eosinophils # 0.1 K/mcL (0.0-0.6); Hematocrit 26.1 % (35.3-44.9); Hemoglobin 8.4 g/dL (11.5-15.4); Immature Granulocytes % 0.3 % (0-4); Lymphocytes % 10.7 %; Mean Corpuscular HGB Conc 32.2 g/dL (31.6-35.5); Mean Corpuscular Hemoglobin 36.4 pg (28.0-33.3); Monocytes # 0.8 K/mcL (0.0-1.3); Monocytes % 8.4 %; Neutrophils # 7.4 K/mcL (1.6-8.9); Platelet Count 138 K/mcL (140-400); Red Blood Count 2.31 M/mcL (3.82-4.97); Red Cell Distribution Width 14.2 % (11.5-14.5); Segmented Neutrophils % 79.5 %; White Blood Count 9.3 K/mcL (4.3-11.1)
[2019-03-15 19:40] LABS: Macrocytosis Present (Not Present); Platelet Estimate Slight Decrease (Normal)
[2019-03-15] MEDS ORDERED: Ondansetron ODT 4 MG TAB.RAPDIS SL ONE (20:43)
[2019-03-15] MEDS ORDERED: ESTRADIOL VG SCH (21:00)
[2019-03-16] MEDS: *HR* HYDROcodone/Acet 5/325 mg TABLET PO PRN ×2 (03:50→10:19)
[2019-03-16 06:02] LABS: Basophils % 0.2 %; Eosinophils # 0.1 K/mcL (0.0-0.6); Eosinophils % 1.2 %; Hematocrit 25.2 % (35.3-44.9); Hemoglobin 8.1 g/dL (11.5-15.4); Immature Granulocytes % 0.5 % (0-4); Lymphocytes % 11.7 %; Mean Corpuscular HGB Conc 32.1 g/dL (31.6-35.5); Mean Corpuscular Hemoglobin 36.8 pg (28.0-33.3); Mean Corpuscular Volume 114.5 fL (83.0-100.0); Mean Platelet Volume 10.1 fL (9.4-12.4); Monocytes # 0.6 K/mcL (0.0-1.3); Monocytes % 7.7 %; Neutrophils # 6.4 K/mcL (1.6-8.9); Platelet Count 157 K/mcL (140-400); Red Cell Distribution Width 13.8 % (11.5-14.5); Segmented Neutrophils % 78.7 %; White Blood Count 8.1 K/mcL (4.3-11.1)
[2019-03-16] MEDS: *HR* Enoxaparin 30 MG/0.3 ML SYRINGE SQ SCH (06:11)
[2019-03-16 06:18] LABS: BUN/Creatinine Ratio 34 (6-26); Blood Urea Nitrogen 23 mg/dL (8-23); Calcium 8.8 mg/dL (8.6-10.3); Carbon Dioxide 29 mEq/L (23-29); Chloride 100 mEq/L (98-107); Glucose 120 mg/dL (70-105); Osmolality,Calculated 283 (280-300); Sodium 134 mEq/L (136-145); eGFR For African Americans > 60 (> 60); eGFR For Non-African Americans > 60 (> 60)
[2019-03-16 06:23] LABS: Macrocytosis Present (Not Present); Platelet Estimate Normal (Normal)
[2019-03-16] MEDS: Iron Sucrose Complex 400 MG in 0.9 % Sodium Chloride 250 ML IVPB SCH (08:58)
[2019-03-16] MEDS: amLODIPine 5 MG TABLET PO SCH (09:03)
[2019-03-16] MEDS: Aspirin Enteric Coated 81 MG Tablet PO SCH (09:03)
[2019-03-16] MEDS: Cholecalciferol (D-3) 1,000 UNIT (25MCG) TABLET PO SCH (09:03)
[2019-03-16] MEDS: Isosorbide MONOnitrate (24 HR) 60 MG TAB.ER.24H PO SCH (09:03)
[2019-03-16] MEDS: Fluconazole 100 MG TABLET PO SCH (09:04)
[2019-03-16 11:29] VITALS: BP 113/63
[2019-03-16] MEDS: *HR* OxyCODONE Immed Rel 5 MG TABLET PO PRN (11:55)
== END 2019-03-16 13:00 | DRG 481 ==
LOC: EMEROOARM 14:06 → 3NENU 14:06 → SUATTDRO 18:40
PROVIDERS: ADMIT Internal Medicine; ATTEND Internal Medicine

== ENCOUNTER 2021-09-26 12:52 | Observation (INO) ==
[2021-09-26] MEDS ORDERED: Nitroglycerin 0.4 MG TAB.SUBL SL PRN (13:06)
[2021-09-26 14:03] LABS: Basophils % 0.5 %; Eosinophils # 0.2 K/mcL (0.0-0.6); Eosinophils % 2.5 %; Hematocrit 34.2 % (35.3-44.9); Hemoglobin 10.7 g/dL (11.5-15.4); Immature Granulocytes % 0.2 % (0-4); Lymphocytes # 1.3 K/mcL (0.6-4.6); Lymphocytes % 20.9 %; Mean Corpuscular HGB Conc 31.3 g/dL (31.6-35.5); Mean Corpuscular Hemoglobin 30.7 pg (28.0-33.3); Mean Platelet Volume 10.7 fL (9.4-12.4); Monocytes # 0.4 K/mcL (0.0-1.3); Monocytes % 6.5 %; Neutrophils # 4.2 K/mcL (1.6-8.9); Platelet Count 192 K/mcL (140-400); Red Blood Count 3.49 M/mcL (3.82-4.97); Red Cell Distribution Width 12.6 % (11.5-14.5); Segmented Neutrophils % 69.4 %
[2021-09-26 14:07] LABS: INR 1.3; Prothrombin Time 14.8 Seconds (9.4-12.1)
[2021-09-26 14:10] LABS: Activated Partial Thrombo Time 30.5 Seconds (26.0-36.0)
[2021-09-26 14:25] LABS: BUN/Creatinine Ratio 28 (6-26); Blood Urea Nitrogen 23 mg/dL (8-23); Calcium 9.6 mg/dL (8.6-10.3); Carbon Dioxide 26 mEq/L (23-29); Chloride 107 mEq/L (98-107); Glucose 153 mg/dL (70-105); Osmolality,Calculated 297 (280-300); Potassium 3.9 mEq/L (3.5-5.1); Sodium 140 mEq/L (136-145); Troponin I 0.03 ng/mL (< 0.04); eGFR For African Americans > 60 (> 60); eGFR For Non-African Americans > 60 (> 60)
[2021-09-26] MEDS ORDERED: Naloxone 0.4 MG/ML INJ IVP PRN (16:56)
[2021-09-26] MEDS ORDERED: Acetaminophen 325 MG TABLET PO PRN (17:03)
[2021-09-26] MEDS ORDERED: Melatonin 3 MG TABLET PO PRN (17:03)
[2021-09-26] MEDS ORDERED: Perflutren Lipid Microsphere 1.3 ML in 0.9 % Sodium Chloride 8.7 ML IVP PRN (17:07)
[2021-09-26] MEDS ORDERED: D5% in Water 1,000 ML IVC PRN (17:10)
[2021-09-26] MEDS ORDERED: Dextrose Gel 15 GM/37.5 ML TUBE PO PRN ×2 (17:10)
[2021-09-26] MEDS ORDERED: *HR* Dextrose 50 % in Water (Syg) 50 ML SYRINGE IVP PRN (17:10)
[2021-09-26] MEDS: Aspirin 81 MG TAB.CHEW PO SCH (17:43)
[2021-09-26] MEDS: Insulin LISPRO 300 UNITS/3 ML VIAL SUBQ SCH (17:59)
[2021-09-26] MEDS: Apixaban 2.5 MG TABLET PO SCH (20:25)
[2021-09-27] MEDS: Insulin LISPRO 300 UNITS/3 ML VIAL SUBQ SCH ×3 (03:25→12:15)
[2021-09-27 03:29] LABS: Basophils % 0.5 %; Eosinophils # 0.3 K/mcL (0.0-0.6); Eosinophils % 4.8 %; Hematocrit 32.8 % (35.3-44.9); Hemoglobin 10.2 g/dL (11.5-15.4); Immature Granulocytes % 0.2 % (0-4); Lymphocytes # 1.5 K/mcL (0.6-4.6); Lymphocytes % 24.8 %; Mean Corpuscular HGB Conc 31.1 g/dL (31.6-35.5); Mean Corpuscular Hemoglobin 30.5 pg (28.0-33.3); Mean Corpuscular Volume 98.2 fL (83.0-100.0); Mean Platelet Volume 10.9 fL (9.4-12.4); Monocytes # 0.6 K/mcL (0.0-1.3); Monocytes % 10.2 %; Neutrophils # 3.6 K/mcL (1.6-8.9); Platelet Count 199 K/mcL (140-400); Red Blood Count 3.34 M/mcL (3.82-4.97); Red Cell Distribution Width 12.4 % (11.5-14.5); Segmented Neutrophils % 59.5 %; White Blood Count 6.1 K/mcL (4.3-11.1)
[2021-09-27 03:51] LABS: BUN/Creatinine Ratio 28 (6-26); Blood Urea Nitrogen 22 mg/dL (8-23); Calcium 9.3 mg/dL (8.6-10.3); Carbon Dioxide 27 mEq/L (23-29); Chloride 106 mEq/L (98-107); Glucose 102 mg/dL (70-105); Magnesium 2.2 mg/dL (1.6-2.6); Osmolality,Calculated 296 (280-300); Potassium 4.3 mEq/L (3.5-5.1); Sodium 141 mEq/L (136-145); eGFR For African Americans > 60 (> 60); eGFR For Non-African Americans > 60 (> 60)
[2021-09-27 03:57] LABS: Estimated Average Glucose 126 mg/dl
[2021-09-27] MEDS ORDERED: Regadenoson 0.4 MG/5 ML SYRINGE IVP ONE (06:06)
[2021-09-27] MEDS: Apixaban 2.5 MG TABLET PO SCH (09:19)
[2021-09-27] MEDS: Aspirin 81 MG TAB.CHEW PO SCH (09:19)
[2021-09-27 14:52] VITALS: BP 175/87; PULSE 63; TEMP 98.5; O2SAT 92
[2021-09-27] MEDS ORDERED: amLODIPine 5 MG TABLET PO SCH (15:15)
== END 2021-09-27 18:43 | disposition home health service (06) ==
LOC: 3BNU 12:52 → EMEROOARM 12:52 → SUATTDRO 16:12 → 3BNU 17:25
PROVIDERS: ADMIT Internal Medicine; ATTEND Internal Medicine

== ENCOUNTER 2021-11-07 13:40 | Inpatient (IN) ==
[2021-11-07] MEDS ORDERED: 0.9 % Sodium Chloride 1,000 ML IVC ONE (14:31)
[2021-11-07] MEDS ORDERED: *HR* Labetalol 20 MG/4 ML SYRINGE IVP ONE (14:34)
[2021-11-07 15:06] LABS: Basophils % 0.4 %; Eosinophils % 0.2 %; Hematocrit 44.9 % (35.3-44.9); Hemoglobin 14.9 g/dL (11.5-15.4); Immature Granulocytes % 0.2 % (0-4); Lymphocytes # 1.1 K/mcL (0.6-4.6); Lymphocytes % 20.1 %; Mean Corpuscular HGB Conc 33.2 g/dL (31.6-35.5); Mean Corpuscular Hemoglobin 30.2 pg (28.0-33.3); Mean Platelet Volume 10.8 fL (9.4-12.4); Monocytes # 0.5 K/mcL (0.0-1.3); Monocytes % 8.9 %; Neutrophils # 3.8 K/mcL (1.6-8.9); Platelet Count 172 K/mcL (140-400); Red Blood Count 4.94 M/mcL (3.82-4.97); Red Cell Distribution Width 13.7 % (11.5-14.5); Segmented Neutrophils % 70.2 %; White Blood Count 5.4 K/mcL (4.3-11.1)
[2021-11-07 15:07] LABS: Mean Corpuscular Volume 90.9 fL (83.0-100.0)
[2021-11-07 15:22] LABS: Bilirubin,Urine Negative (Negative); Blood,Urine Negative (Negative); Clarity,Urine Clear (Clear); Color,Urine Yellow (Yellow); Glucose,Urine (UA) Normal (Normal); Hyaline Casts,Urine Moderate per lpf (None Seen); Ketones,Urine 80 mg/dL (Negative); Leukocyte Esterase,Urine Trace (Negative); Mucus,Urine Few per lpf (None-Few); Nitrite,Urine Negative (Negative); Protein,Urine 100 mg/dL (Neg-Trace); RBC,Urine 0-3 per hpf (0-3); Renal Epithelial Cells,Urine Few per hpf (None-Few); Squamous Epithelial Cell,Urine Few per hpf (None-Few); Urobilinogen,Urine Normal (Normal)
[2021-11-07] MEDS ORDERED: cefTRIAXone 1,000 MG in 0.9 % Sodium Chloride 10 ML IVP ONE (15:36)
[2021-11-07 15:37] LABS: Troponin I 0.04 ng/mL (< 0.04)
[2021-11-07 15:49] LABS: Influenza A PCR Negative (Negative); Influenza B PCR Negative (Negative); Resp. Syncytial Virus PCR Negative (Negative)
[2021-11-07 15:54] LABS: Alanine Aminotransferase 18 Units/L (7-52); Albumin 4.2 g/dL (3.5-5.7); Albumin/Globulin Ratio 1.3 (1.1-2.2); Alkaline Phosphatase 74 Units/L (34-104); Aspartate Amino Transferase 45 Units/L (13-39); BUN/Creatinine Ratio 39 (6-26); Bilirubin,Total 0.5 mg/dL (0.3-1.0); Blood Urea Nitrogen 39 mg/dL (8-23); Calcium 9.9 mg/dL (8.6-10.3); Carbon Dioxide 23 mEq/L (23-29); Chloride 100 mEq/L (98-107); Globulin 3.3 g/dL (2.4-3.5); Glucose 101 mg/dL (70-105); Osmolality,Calculated 294 (280-300); Potassium 3.9 mEq/L (3.5-5.1); Sodium 137 mEq/L (136-145); Total Protein 7.5 g/dL (6.4-8.9); eGFR For African Americans > 60 (> 60); eGFR For Non-African Americans 53 (> 60)
[2021-11-07] MEDS ORDERED: Ondansetron 4 MG/2 ML VIAL IVP ONE (16:22)
[2021-11-07 16:26] LABS: SARS-CoV-2 by PCR (In House) Positive (Negative)
[2021-11-07] MEDS ORDERED: Naloxone 0.4 MG/ML INJ IVP PRN (16:53)
[2021-11-07] MEDS ORDERED: Ondansetron 4 MG/2 ML VIAL IVP PRN (16:53)
[2021-11-07] MEDS ORDERED: 0.9 % Sodium Chloride 1,000 ML IVC SCH (17:00)
[2021-11-07] MEDS: Metoprolol XL (24 HR) Succ 25 MG TAB.ER.24H PO SCH (22:15)
[2021-11-07] MEDS: 0.9 % Sodium Chloride 1,000 ML IVC SCH (22:16)
[2021-11-07] MEDS: amLODIPine 5 MG TABLET PO SCH (22:16)
[2021-11-07] MEDS: Apixaban 2.5 MG TABLET PO SCH (22:16)
[2021-11-08] MEDS ORDERED: *HR* LORazepam 2 MG/ML VIAL IVP ONE (00:01)
[2021-11-08 07:16] LABS: BUN/Creatinine Ratio 38 (6-26); Blood Urea Nitrogen 29 mg/dL (8-23); Calcium 8.6 mg/dL (8.6-10.3); Carbon Dioxide 24 mEq/L (23-29); Chloride 105 mEq/L (98-107); Glucose 112 mg/dL (70-105); Magnesium 1.9 mg/dL (1.6-2.6); Osmolality,Calculated 291 (280-300); Phosphorous 2.7 mg/dL (2.7-4.5); Potassium 3.6 mEq/L (3.5-5.1); Sodium 137 mEq/L (136-145); eGFR For African Americans > 60 (> 60); eGFR For Non-African Americans > 60 (> 60)
[2021-11-08 07:33] LABS: Basophils % 0.2 %; Eosinophils # 0.1 K/mcL (0.0-0.6); Eosinophils % 0.9 %; Hematocrit 38.3 % (35.3-44.9); Immature Granulocytes % 0.4 % (0-4); Lymphocytes % 17.2 %; Mean Corpuscular HGB Conc 32.4 g/dL (31.6-35.5); Mean Corpuscular Hemoglobin 29.6 pg (28.0-33.3); Mean Corpuscular Volume 91.4 fL (83.0-100.0); Mean Platelet Volume 10.8 fL (9.4-12.4); Monocytes # 0.5 K/mcL (0.0-1.3); Monocytes % 8.5 %; Platelet Count 149 K/mcL (140-400); Red Blood Count 4.19 M/mcL (3.82-4.97); Red Cell Distribution Width 13.8 % (11.5-14.5); Segmented Neutrophils % 72.8 %; White Blood Count 5.5 K/mcL (4.3-11.1)
[2021-11-08 07:39] LABS: Hemoglobin 12.4 g/dL (11.5-15.4)
[2021-11-08] MEDS: Aspirin Enteric Coated 81 MG Tablet PO SCH (09:42)
[2021-11-08] MEDS: Apixaban 2.5 MG TABLET PO SCH ×2 (09:42→22:03)
[2021-11-08] MEDS: amLODIPine 5 MG TABLET PO SCH (09:42)
[2021-11-08] MEDS: Metoprolol XL (24 HR) Succ 25 MG TAB.ER.24H PO SCH ×2 (09:42→22:02)
[2021-11-08] MEDS: cefTRIAXone 1,000 MG in 0.9 % Sodium Chloride 10 ML IVP SCH (09:46)
[2021-11-08] MEDS: Ketoconazole Shampoo 120 ML BOTTLE TP SCH (09:46)
[2021-11-08] MEDS: 0.9 % Sodium Chloride 1,000 ML IVC SCH (11:42)
[2021-11-09] MEDS: Metoprolol XL (24 HR) Succ 25 MG TAB.ER.24H PO SCH ×2 (09:23→21:31)
[2021-11-09] MEDS: Apixaban 2.5 MG TABLET PO SCH ×2 (09:24→21:31)
[2021-11-09] MEDS: amLODIPine 5 MG TABLET PO SCH (09:24)
[2021-11-09] MEDS: cefTRIAXone 1,000 MG in 0.9 % Sodium Chloride 10 ML IVP SCH (09:24)
[2021-11-09] MEDS: Aspirin Enteric Coated 81 MG Tablet PO SCH (09:24)
[2021-11-09 13:19] LABS: Basophils % 0.2 %; Eosinophils # 0.1 K/mcL (0.0-0.6); Eosinophils % 1.5 %; Hematocrit 39.7 % (35.3-44.9); Immature Granulocytes % 0.2 % (0-4); Lymphocytes # 0.9 K/mcL (0.6-4.6); Lymphocytes % 16.9 %; Mean Corpuscular HGB Conc 32.7 g/dL (31.6-35.5); Mean Corpuscular Hemoglobin 29.6 pg (28.0-33.3); Mean Corpuscular Volume 90.4 fL (83.0-100.0); Mean Platelet Volume 10.5 fL (9.4-12.4); Monocytes # 0.5 K/mcL (0.0-1.3); Neutrophils # 3.7 K/mcL (1.6-8.9); Platelet Count 155 K/mcL (140-400); Red Blood Count 4.39 M/mcL (3.82-4.97); Red Cell Distribution Width 13.5 % (11.5-14.5); Segmented Neutrophils % 71.2 %; White Blood Count 5.2 K/mcL (4.3-11.1)
[2021-11-09 13:40] LABS: BUN/Creatinine Ratio 22 (6-26); Blood Urea Nitrogen 16 mg/dL (8-23); Calcium 9.2 mg/dL (8.6-10.3); Carbon Dioxide 25 mEq/L (23-29); Chloride 103 mEq/L (98-107); Glucose 138 mg/dL (70-105); Magnesium 1.6 mg/dL (1.6-2.6); Osmolality,Calculated 287 (280-300); Potassium 3.2 mEq/L (3.5-5.1); Sodium 137 mEq/L (136-145); eGFR For African Americans > 60 (> 60); eGFR For Non-African Americans > 60 (> 60)
[2021-11-10 04:29] LABS: Basophils % 0.4 %; Eosinophils # 0.2 K/mcL (0.0-0.6); Hematocrit 38.8 % (35.3-44.9); Hemoglobin 12.7 g/dL (11.5-15.4); Immature Granulocytes % 0.2 % (0-4); Lymphocytes # 1.1 K/mcL (0.6-4.6); Lymphocytes % 22.2 %; Mean Corpuscular HGB Conc 32.7 g/dL (31.6-35.5); Mean Corpuscular Hemoglobin 29.7 pg (28.0-33.3); Mean Corpuscular Volume 90.9 fL (83.0-100.0); Mean Platelet Volume 11.2 fL (9.4-12.4); Monocytes # 0.5 K/mcL (0.0-1.3); Monocytes % 10.2 %; Neutrophils # 3.2 K/mcL (1.6-8.9); Platelet Count 154 K/mcL (140-400); Red Blood Count 4.27 M/mcL (3.82-4.97); Red Cell Distribution Width 13.7 % (11.5-14.5)
[2021-11-10] MEDS ORDERED: *HR* Labetalol 20 MG/4 ML SYRINGE IVP ONE (04:35)
[2021-11-10 04:38] LABS: BUN/Creatinine Ratio 28 (6-26); Blood Urea Nitrogen 19 mg/dL (8-23); Calcium 9.3 mg/dL (8.6-10.3); Carbon Dioxide 26 mEq/L (23-29); Chloride 104 mEq/L (98-107); Glucose 102 mg/dL (70-105); Magnesium 1.7 mg/dL (1.6-2.6); Osmolality,Calculated 288 (280-300); Phosphorous 2.4 mg/dL (2.7-4.5); Potassium 3.4 mEq/L (3.5-5.1); Sodium 138 mEq/L (136-145); eGFR For African Americans > 60 (> 60); eGFR For Non-African Americans > 60 (> 60)
[2021-11-10] MEDS: Aspirin Enteric Coated 81 MG Tablet PO SCH (07:45)
[2021-11-10] MEDS: Apixaban 2.5 MG TABLET PO SCH ×2 (07:45→21:04)
[2021-11-10] MEDS: amLODIPine 5 MG TABLET PO SCH (07:45)
[2021-11-10] MEDS: Metoprolol XL (24 HR) Succ 25 MG TAB.ER.24H PO SCH ×2 (07:46→21:03)
[2021-11-11 02:50] LABS: Basophils % 0.2 %; Eosinophils # 0.2 K/mcL (0.0-0.6); Eosinophils % 2.9 %; Hematocrit 37.4 % (35.3-44.9); Hemoglobin 12.2 g/dL (11.5-15.4); Immature Granulocytes % 0.4 % (0-4); Lymphocytes # 1.1 K/mcL (0.6-4.6); Mean Corpuscular HGB Conc 32.6 g/dL (31.6-35.5); Mean Corpuscular Hemoglobin 29.8 pg (28.0-33.3); Mean Corpuscular Volume 91.2 fL (83.0-100.0); Mean Platelet Volume 10.9 fL (9.4-12.4); Monocytes # 0.4 K/mcL (0.0-1.3); Monocytes % 8.2 %; Neutrophils # 3.4 K/mcL (1.6-8.9); Platelet Count 161 K/mcL (140-400); Red Cell Distribution Width 13.6 % (11.5-14.5); Segmented Neutrophils % 66.3 %; White Blood Count 5.1 K/mcL (4.3-11.1)
[2021-11-11 03:21] LABS: BUN/Creatinine Ratio 37 (6-26); Blood Urea Nitrogen 28 mg/dL (8-23); Calcium 9.5 mg/dL (8.6-10.3); Carbon Dioxide 27 mEq/L (23-29); Chloride 105 mEq/L (98-107); Glucose 107 mg/dL (70-105); Magnesium 1.8 mg/dL (1.6-2.6); Osmolality,Calculated 296 (280-300); Phosphorous 2.8 mg/dL (2.7-4.5); Potassium 3.2 mEq/L (3.5-5.1); Sodium 140 mEq/L (136-145); eGFR For African Americans > 60 (> 60); eGFR For Non-African Americans > 60 (> 60)
[2021-11-11] MEDS: Aspirin Enteric Coated 81 MG Tablet PO SCH (09:11)
[2021-11-11] MEDS: Apixaban 2.5 MG TABLET PO SCH ×2 (09:11→20:42)
[2021-11-11] MEDS: Metoprolol XL (24 HR) Succ 25 MG TAB.ER.24H PO SCH ×2 (09:12→20:42)
[2021-11-11] MEDS: amLODIPine 5 MG TABLET PO SCH (09:13)
[2021-11-11] MEDS ORDERED: *HR* LORazepam 2 MG/ML VIAL IVP ONE (19:29)
[2021-11-12 06:26] LABS: Basophils % 0.2 %; Eosinophils # 0.2 K/mcL (0.0-0.6); Eosinophils % 2.8 %; Hematocrit 36.2 % (35.3-44.9); Hemoglobin 11.8 g/dL (11.5-15.4); Immature Granulocytes % 0.4 % (0-4); Lymphocytes # 1.3 K/mcL (0.6-4.6); Lymphocytes % 24.5 %; Mean Corpuscular HGB Conc 32.6 g/dL (31.6-35.5); Mean Corpuscular Hemoglobin 29.9 pg (28.0-33.3); Mean Corpuscular Volume 91.9 fL (83.0-100.0); Mean Platelet Volume 11.1 fL (9.4-12.4); Monocytes # 0.5 K/mcL (0.0-1.3); Monocytes % 9.1 %; Neutrophils # 3.3 K/mcL (1.6-8.9); Platelet Count 198 K/mcL (140-400); Red Blood Count 3.94 M/mcL (3.82-4.97); Red Cell Distribution Width 13.8 % (11.5-14.5); White Blood Count 5.3 K/mcL (4.3-11.1)
[2021-11-12 06:48] LABS: BUN/Creatinine Ratio 49 (6-26); Blood Urea Nitrogen 36 mg/dL (8-23); Calcium 9.7 mg/dL (8.6-10.3); Carbon Dioxide 30 mEq/L (23-29); Chloride 103 mEq/L (98-107); Glucose 109 mg/dL (70-105); Magnesium 1.9 mg/dL (1.6-2.6); Osmolality,Calculated 301 (280-300); Phosphorous 2.9 mg/dL (2.7-4.5); Potassium 3.8 mEq/L (3.5-5.1); Sodium 141 mEq/L (136-145); eGFR For African Americans > 60 (> 60); eGFR For Non-African Americans > 60 (> 60)
[2021-11-12] MEDS: Metoprolol XL (24 HR) Succ 25 MG TAB.ER.24H PO SCH ×2 (10:24→21:32)
[2021-11-12] MEDS: amLODIPine 5 MG TABLET PO SCH (10:25)
[2021-11-12] MEDS: Aspirin Enteric Coated 81 MG Tablet PO SCH (10:25)
[2021-11-12] MEDS: Apixaban 2.5 MG TABLET PO SCH ×2 (10:25→21:31)
[2021-11-13 00:20] VITALS: O2SAT 94
[2021-11-13] MEDS ORDERED: Melatonin 3 MG TABLET PO ONE (00:20)
[2021-11-13 08:15] VITALS: PULSE 69
[2021-11-13] MEDS: Apixaban 2.5 MG TABLET PO SCH (09:00)
[2021-11-13] MEDS: amLODIPine 5 MG TABLET PO SCH (09:00)
[2021-11-13] MEDS: Aspirin Enteric Coated 81 MG Tablet PO SCH (09:00)
[2021-11-13] MEDS: Metoprolol XL (24 HR) Succ 25 MG TAB.ER.24H PO SCH (09:00)
[2021-11-13 09:39] LABS: Basophils % 0.4 %; Eosinophils # 0.2 K/mcL (0.0-0.6); Eosinophils % 3.1 %; Hematocrit 35.8 % (35.3-44.9); Hemoglobin 11.3 g/dL (11.5-15.4); Immature Granulocytes % 0.4 % (0-4); Lymphocytes # 1.6 K/mcL (0.6-4.6); Lymphocytes % 22.6 %; Mean Corpuscular HGB Conc 31.6 g/dL (31.6-35.5); Mean Corpuscular Hemoglobin 29.4 pg (28.0-33.3); Mean Corpuscular Volume 93.2 fL (83.0-100.0); Mean Platelet Volume 11.1 fL (9.4-12.4); Monocytes # 0.7 K/mcL (0.0-1.3); Monocytes % 9.4 %; Neutrophils # 4.5 K/mcL (1.6-8.9); Platelet Count 207 K/mcL (140-400); Red Blood Count 3.84 M/mcL (3.82-4.97); Red Cell Distribution Width 13.9 % (11.5-14.5); Segmented Neutrophils % 64.1 %
[2021-11-13] MEDS: Ketoconazole Shampoo 120 ML BOTTLE TP SCH (09:48)
[2021-11-13 10:00] LABS: BUN/Creatinine Ratio 53 (6-26); Blood Urea Nitrogen 35 mg/dL (8-23); Calcium 9.4 mg/dL (8.6-10.3); Carbon Dioxide 31 mEq/L (23-29); Chloride 105 mEq/L (98-107); Glucose 88 mg/dL (70-105); Magnesium 1.8 mg/dL (1.6-2.6); Osmolality,Calculated 297 (280-300); Potassium 4.3 mEq/L (3.5-5.1); Sodium 140 mEq/L (136-145); eGFR For African Americans > 60 (> 60); eGFR For Non-African Americans > 60 (> 60)
[2021-11-13 16:37] VITALS: BP 140/75; TEMP 98.4
== END 2021-11-13 21:02 | DRG 177 ==
LOC: EMEROOARM 13:40 → 3ANU 13:40 → SUATTDRO 17:29 → 3ANU 18:19 → SUATTDRO 11-09 07:46
PROVIDERS: ADMIT Family Medicine; ATTEND Internal Medicine